=== PATIENT | female | born 1945 | race Caucasian/White ===

== ENCOUNTER 2019-12-05 11:00 | Outpatient (RCR) | payer MEDICARE, SELFPAY ==
[2019-11-21 08:25] VITALS: BP 94/70; PULSE 83; RESP 18; TEMP 36.8; O2SAT 97; BMI 23.2
--- NOTE | 2019-11-21 12:38 | PN.PCM_ITS ---
(1) Decubitus ulcer of left ankle, stage 2 Status: Acute Current Visit: Yes Code(s): L89.522 - Pressure ulcer of left ankle, stage 2 (2) Decubitus ulcer of left leg, stage 2 Status: Acute Current Visit: Yes Code(s): L89.892 - Pressure ulcer of other site, stage 2 (3) Atrial fibrillation and flutter Status: Acute Current Visit: Yes Code(s): I48.91 - Unspecified atrial fibrillation; I48.92 - Unspecified atrial flutter (4) Chronic obstructive pulmonary disease (COPD) Status: Chronic Current Visit: Yes Qualifiers: COPD type: COPD with acute exacerbation Qualified Code(s): J44.1 - Chronic obstructive pulmonary disease with (acute) exacerbation Code(s): J44.9 - Chronic obstructive pulmonary disease, unspecified Type of Wound Date of Service: 11/21/19 - Physical Exam Vital Signs Temp Pulse Resp BP Pulse Ox 98.3 F 83 18 94/70 97 11/21/19 08:25 11/21/19 08:25 11/21/19 08:25 11/21/19 08:25 11/21/19 08:25 Wound Measurements and Assessment WC - Nurse 1 - General Ulcer Measurement Start: 11/21/19 08:05 Freq: Status: Active Protocol: Activity Type Activity Date Activity User E-Sign Co-Sign Detail Recorded Client Recorded Date Recorded By Document 11/21/19 08:25 OR [id number] 11/21/19 08:57 MT 11/21/19 08:25 Wound Center Nurse 1 [Ulcer Assessment] #5 LEFT POSTERIOR -Current Size (cm) - Length 0.3 -Current Size (cm) - Width 0.3 -Current Size (cm) - Depth 0.1 -Total Square Cm 0.09 -Exudate Amt Small -Exudate Type Serosanguineous -Wound Margin Flat & Intact -Granulation Amt Small (1-33%) -Granulation Quality Pale,[place] -Necrosis Amt Large (67-100%) -Necrotic Tissue Type Adherent Slough -Texture (Darshana-wound Skin Appearance) Assessed, Localized Edema -Moisture (Darshana-wound Skin Appearance Assessed, ) Weeping -Color (Darshana-wound Skin Appearance) Assessed, Erythema -Temperature (Darshana-wound Skin Hot Appearance) -Tenderness on Palpation (Darshana-wound No Skin Appearance) -Ulcer Cleansing Rinsed/ Irrigated with Saline -Foul Odor after Cleansing No -Anesthetic Used 4% Lidocaine Solution #4 LEFT ACHILLES -Current Size (cm) - Length 2.8 -Current Size (cm) - Width 2.3 -Current Size (cm) - Depth 0.2 -Total Square Cm 6.44 -Exudate Amt None Present -Exudate Type Serosanguineous -Wound Margin Flat & Intact -Granulation Amt Small (1-33%) -Granulation Quality Pale,[place] -Necrosis Amt Large (67-100%) -Necrotic Tissue Type Adherent Slough -Texture (Darshana-wound Skin Appearance) Assessed, Localized Edema -Moisture (Darshana-wound Skin Appearance Assessed ) -Color (Darshana-wound Skin Appearance) Assessed -Temperature (Darshana-wound Skin Hot Appearance) -Tenderness on Palpation (Darshana-wound No Skin Appearance) -Ulcer Cleansing Rinsed/ Irrigated with Saline -Foul Odor after Cleansing No -Anesthetic Used 4% Lidocaine Solution #3 Left Anterior ankle cluster -Current Size (cm) - Length 2.2 -Current Size (cm) - Width 0.7 -Current Size (cm) - Depth 0.2 -Total Square Cm 1.54 -Exudate Amt Small -Exudate Type Serosanguineous -Wound Margin Flat & Intact -Granulation Amt Small (1-33%) -Granulation Quality Pale,[place] -Necrosis Amt Large (67-100%) -Necrotic Tissue Type Adherent Slough -Texture (Darshana-wound Skin Appearance) Assessed, Localized Edema -Moisture (Darshana-wound Skin Appearance Assessed, ) Weeping -Color (Darshana-wound Skin Appearance) Assessed, Erythema -Temperature (Darshana-wound Skin Hot Appearance) -Tenderness on Palpation (Darshana-wound No Skin Appearance) -Ulcer Cleansing Rinsed/ Irrigated with Saline -Foul Odor after Cleansing No -Anesthetic Used 4% Lidocaine Solution #2 Left Med Head -Current Size (cm) - Length 0.6 -Current Size (cm) - Width 0.5 -Current Size (cm) - Depth 0.1 -Total Square Cm 0.30 -Exudate Amt Small -Exudate Type Purulent -Wound Margin Flat & Intact -Granulation Amt Small (1-33%) -Granulation Quality Pale,[place] -Necrosis Amt Large (67-100%) -Necrotic Tissue Type Adherent Slough -Texture (Darshana-wound Skin Appearance) Assessed, Localized Edema -Moisture (Darshana-wound Skin Appearance Assessed, ) Weeping -Color (Darshana-wound Skin Appearance) Assessed, Erythema -Temperature (Darshana-wound Skin Hot Appearance) -Tenderness on Palpation (Darshana-wound No Skin Appearance) -Ulcer Cleansing Rinsed/ Irrigated with Saline -Foul Odor after Cleansing No -Anesthetic Used 4% Lidocaine Solution #1 right post calf -Current Size (cm) - Length 4.0 -Current Size (cm) - Width 1.2 -Current Size (cm) - Depth 0.2 -Total Square Cm 4.80 -Exudate Amt Small -Exudate Type Serosanguineous -Wound Margin Flat & Intact -Granulation Amt Small (1-33%) -Granulation Quality Pale,[place] -Necrosis Amt Large (67-100%) -Necrotic Tissue Type Adherent Slough -Texture (Darshana-wound Skin Appearance) Assessed, Localized Edema -Moisture (Darshana-wound Skin Appearance Assessed, ) Weeping -Color (Darshana-wound Skin Appearance) Assessed, Erythema -Temperature (Darshana-wound Skin No Abnormality Appearance) (Pt Warm) -Tenderness on Palpation (Darshana-wound No Skin Appearance) -Ulcer Cleansing Rinsed/ Irrigated with Saline -Foul Odor after Cleansing No -Anesthetic Used 4% Lidocaine Solution [Edema Assessment] -Right Calf (cm) 35 -Right Ankle (cm) 23 -Left Calf (cm) 35.5 -Left Ankle (cm) 22 WC - Nurse 2 - General Ulcer CM Notes Start: 11/21/19 08:05 Freq: Status: Active Protocol: Activity Type Activity Date Activity User E-Sign Co-Sign Detail Recorded Client Recorded Date Recorded By Document 11/21/19 09:19 MW [id number] 11/21/19 09:31 MW 11/21/19 09:19 Wound Center Nurse 2 [Procedure/Treatment] #5 LEFT POSTERIOR -Time 09:21 -Correct Patient Yes -Correct Side, Site, Position Yes -Correct Procedure Yes -Procedure Performed No -Post Debridement Size (cm) - Length 0 -Post Debridement Size (cm) - Width 0 -Post Debridement Size (cm) - Depth 0 -Total Square Cm 0 -Wound/Ulcer Outcome Healed- Epithelialized -Bleeding Controlled with NA #4 LEFT ACHILLES -Time 09:21 -Correct Patient Yes -Correct Side, Site, Position Yes -Correct Procedure Yes -Procedure Performed Yes -Type of Procedure Debridement -Clinical Debridement Subcutaneous -Post Debridement Size (cm) - Length 3.5 -Post Debridement Size (cm) - Width 3.5 -Post Debridement Size (cm) - Depth 0.2 -Total Square Cm 12.25 -Wound/Ulcer Outcome Not Healed -Ulcer Cleansing Rinsed/ Irrigated with Saline -Foul Odor after Cleansing No -Bioengineered Tissue No -Bleeding Controlled with Pressure -Offloading No -Treatment Response Procedure Tolerated Well #3 Left Anterior ankle cluster -Time 09:21 -Correct Patient Yes -Correct Side, Site, Position Yes -Correct Procedure Yes -Procedure Performed Yes -Type of Procedure Debridement -Clinical Debridement Subcutaneous -Post Debridement Size (cm) - Length 9.0 -Post Debridement Size (cm) - Width 1.0 -Post Debridement Size (cm) - Depth 0.2 -Total Square Cm 9.00 -Wound/Ulcer Outcome Not Healed -Ulcer Cleansing Rinsed/ Irrigated with Saline -Foul Odor after Cleansing No -Bioengineered Tissue No -Bleeding Controlled with Pressure -Offloading No -Treatment Response Procedure Tolerated Well #2 Left Med Head -Time 09:22 -Correct Patient Yes -Correct Side, Site, Position Yes -Correct Procedure Yes -Procedure Performed No -Wound/Ulcer Outcome Healed- Epithelialized -Ulcer Cleansing Not Cleansed -Bleeding Controlled with NA #1 right post calf -Time 09:22 -Correct Patient Yes -Correct Side, Site, Position Yes -Correct Procedure Yes -Procedure Performed Yes -Type of Procedure Debridement -Clinical Debridement Subcutaneous -Post Debridement Size (cm) - Length 4.3 -Post Debridement Size (cm) - Width 1.5 -Post Debridement Size (cm) - Depth 0.3 -Total Square Cm 6.45 -Wound/Ulcer Outcome Not Healed -Ulcer Cleansing Rinsed/ Irrigated with Saline -Foul Odor after Cleansing No -Bioengineered Tissue No -Bleeding Controlled with Pressure -Offloading No -Treatment Response Procedure Tolerated Well [See Physician Procedure note for Specifics] Pain Scale: 0-10 Numeric [Pain] -Is Patient Pain Free? Yes Debridement Note Post-Debridement Measurements/Treatment WC - Nurse 2 - General Ulcer CM Notes Start: 11/21/19 08:05 Freq: Status: Active Protocol: Activity Type Activity Date Activity User E-Sign Co-Sign Detail Recorded Client Recorded Date Recorded By Document 11/21/19 09:19 MW [id number] 11/21/19 09:31 MW 11/21/19 09:19 Wound Center Nurse 2 #5 LEFT POSTERIOR -Time 09:21 -Correct Patient Yes -Correct Side, Site, Position Yes -Correct Procedure Yes -Procedure Performed No -Post Debridement Size (cm) - Length 0 -Post Debridement Size (cm) - Width 0 -Post Debridement Size (cm) - Depth 0 -Total Square Cm 0 -Wound/Ulcer Outcome Healed- Epithelialized -Bleeding Controlled with NA #4 LEFT ACHILLES -Time 09:21 -Correct Patient Yes -Correct Side, Site, Position Yes -Correct Procedure Yes -Procedure Performed Yes -Type of Procedure Debridement -Clinical Debridement Subcutaneous -Post Debridement Size (cm) - Length 3.5 -Post Debridement Size (cm) - Width 3.5 -Post Debridement Size (cm) - Depth 0.2 -Total Square Cm 12.25 -Wound/Ulcer Outcome Not Healed -Ulcer Cleansing Rinsed/ Irrigated with Saline -Foul Odor after Cleansing No -Bioengineered Tissue No -Bleeding Controlled with Pressure -Offloading No -Treatment Response Procedure Tolerated Well #3 Left Anterior ankle cluster -Time 09:21 -Correct Patient Yes -Correct Side, Site, Position Yes -Correct Procedure Yes -Procedure Performed Yes -Type of Procedure Debridement -Clinical Debridement Subcutaneous -Post Debridement Size (cm) - Length 9.0 -Post Debridement Size (cm) - Width 1.0 -Post Debridement Size (cm) - Depth 0.2 -Total Square Cm 9.00 -Wound/Ulcer Outcome Not Healed -Ulcer Cleansing Rinsed/ Irrigated with Saline -Foul Odor after Cleansing No -Bioengineered Tissue No -Bleeding Controlled with Pressure -Offloading No -Treatment Response Procedure Tolerated Well #2 Left Med Head -Time 09:22 -Correct Patient Yes -Correct Side, Site, Position Yes -Correct Procedure Yes -Procedure Performed No -Wound/Ulcer Outcome Healed- Epithelialized -Ulcer Cleansing Not Cleansed -Bleeding Controlled with NA #1 right post calf -Time 09:22 -Correct Patient Yes -Correct Side, Site, Position Yes -Correct Procedure Yes -Procedure Performed Yes -Type of Procedure Debridement -Clinical Debridement Subcutaneous -Post Debridement Size (cm) - Length 4.3 -Post Debridement Size (cm) - Width 1.5 -Post Debridement Size (cm) - Depth 0.3 -Total Square Cm 6.45 -Wound/Ulcer Outcome Not Healed -Ulcer Cleansing Rinsed/ Irrigated with Saline -Foul Odor after Cleansing No -Bioengineered Tissue No -Bleeding Controlled with Pressure -Offloading No -Treatment Response Procedure Tolerated Well Pain Scale: 0-10 Numeric Is Patient Pain Free? Yes Assessment/Plan Active Problems Decubitus ulcer of left ankle, stage 2 (Acute) Decubitus ulcer of left leg, stage 2 (Acute) Atrial fibrillation and flutter (Acute) Chronic obstructive pulmonary disease (COPD) (Chronic)
--- NOTE | 2019-11-21 12:46 | PCM.WC.HP ---
(1) Decubitus ulcer of left ankle, stage 2 Status: Acute Current Visit: Yes Code(s): L89.522 - Pressure ulcer of left ankle, stage 2 (2) Decubitus ulcer of left leg, stage 2 Status: Acute Current Visit: Yes Code(s): L89.892 - Pressure ulcer of other site, stage 2 (3) Atrial fibrillation and flutter Status: Acute Current Visit: Yes Code(s): I48.91 - Unspecified atrial fibrillation; I48.92 - Unspecified atrial flutter (4) Chronic obstructive pulmonary disease (COPD) Status: Chronic Current Visit: Yes Qualifiers: COPD type: COPD with acute exacerbation Qualified Code(s): J44.1 - Chronic obstructive pulmonary disease with (acute) exacerbation Code(s): J44.9 - Chronic obstructive pulmonary disease, unspecified History of Present Illness Date of Service: 11/21/19 Chief Complaint: Follow-up on decubitus ulcers right and left lower extremities History of Wound: 74-year-old white female referred to us by her family doctor for wound care on her decubitus ulcers that have developed on bilateral lower extremities. Patient has many comorbidities and is not ambulatory. Daughter is here with her today and states she has a hospital bed and is either in the bed or in the lounge chair. Patient has pitting edema bilateral lower extremities. Patient is on Bumex daily but only uses the Lasix when her weight gain is greater than 3 pounds. Patient is seeping fluid out of skin pores and wounds. This is causing more wounds and cellulitis. Patient was on antibiotics for her cellulitis from her family doctor of [place] and has finished that. Patient also had MRSA history and that is why she was on Levaquin also. Past Medical History Past Medical History: Chronic Problems Chronic obstructive pulmonary disease (COPD) (Chronic) Past Medical History: MRSA and infected wounds, edema lower extremities, congestive heart failure, atrial fib, pitting edema bilateral lower extremities, cubitus ulcers bilateral lower extremities, Home Medications: Ambulatory Orders Medication Instructions Recorded Atenolol 25 mg PO DAILY 11/21/19 Bumetanide 1 mg PO BID 11/21/19 Digoxin 0.125 mg PO DAILY 11/21/19 Folic Acid 1 mg PO DAILY@0800 11/21/19 Gabapentin [Neurontin] 600 mg PO BIDCM 11/21/19 Magnesium 200 mg PO DAILY 11/21/19 Methotrexate 2.5 mg pe BC DAILY 11/21/19 Potassium Chloride [K-Dur] 20 meq PO DAILY 11/21/19 Prednisone 5 mg PO BID 11/21/19 traMADol [Ultram (G)] 50 mg PO Q4H PRN PRN 11/21/19 Review of Systems Constitutional: Denies: Chills, Fever Eyes: Denies: Blurred vision, Drainage, Pain HEENT: Denies: Difficulty Hearing, Difficulty Swallowing, Sore Throat, Visual Changes Cardiovascular: Denies: Chest Pain, Palpitations, Syncope Respiratory: Denies: Cough, Shortness of Breath Gastrointestinal: Denies: Abdominal Pain, Nausea, Vomiting Genitourinary: Denies: Dysuria, Frequency Musculoskeletal: Denies: Joint Pain, Muscle pain Skin: Reports: Wounds - Decubitus ulcers bilateral lower extremities. Denies: Jaundice, Rash Neurological: Denies: Balance problems, Change in Speech, Difficulty swallowing, Focal weakness Psychiatric: Denies: Anxiety, Depression Endocrine: Denies: Change in Body Habitus Hematologic/ Lymphatic: Denies: Adenopathy - Physical Exam Vital Signs Temp Pulse Resp BP Pulse Ox 98.3 F 83 18 94/70 97 11/21/19 08:25 11/21/19 08:25 11/21/19 08:25 11/21/19 08:25 11/21/19 08:25 General: Oriented x3, Cooperative, Well developed HEENT: Atraumatic, PERRLA Oral: Moist Mucosa Neck: Supple, No JVD Lungs: Normal air movement, No rhonchi Cardiovascular: Regular rate, Regular Rhythm Abdomen: Bowel Sounds Present, Soft, Non Tender, No Hepato-splenomegaly Extremities: No clubbing, No edema Skin: Ulcer/ Wound - Decubitus ulcers bilateral lower extremities anterior and posterior Edema bilateral lower legs Wound Measurements and Assessment WC - Nurse 1 - General Ulcer Measurement Start: 11/21/19 08:05 Freq: Status: Active Protocol: Activity Type Activity Date Activity User E-Sign Co-Sign Detail Recorded Client Recorded Date Recorded By Document 11/21/19 08:25 WI [id number] 11/21/19 08:57 MT 11/21/19 08:25 Wound Center Nurse 1 [Ulcer Assessment] #5 LEFT POSTERIOR -Current Size (cm) - Length 0.3 -Current Size (cm) - Width 0.3 -Current Size (cm) - Depth 0.1 -Total Square Cm 0.09 -Exudate Amt Small -Exudate Type Serosanguineous -Wound Margin Flat & Intact -Granulation Amt Small (1-33%) -Granulation Quality Pale,[place] -Necrosis Amt Large (67-100%) -Necrotic Tissue Type Adherent Slough -Texture (Darshana-wound Skin Appearance) Assessed, Localized Edema -Moisture (Darshana-wound Skin Appearance Assessed, ) Weeping -Color (Darshana-wound Skin Appearance) Assessed, Erythema -Temperature (Darshana-wound Skin Hot Appearance) -Tenderness on Palpation (Darshana-wound No Skin Appearance) -Ulcer Cleansing Rinsed/ Irrigated with Saline -Foul Odor after Cleansing No -Anesthetic Used 4% Lidocaine Solution #4 LEFT ACHILLES -Current Size (cm) - Length 2.8 -Current Size (cm) - Width 2.3 -Current Size (cm) - Depth 0.2 -Total Square Cm 6.44 -Exudate Amt None Present -Exudate Type Serosanguineous -Wound Margin Flat & Intact -Granulation Amt Small (1-33%) -Granulation Quality Pale,[place] -Necrosis Amt Large (67-100%) -Necrotic Tissue Type Adherent Slough -Texture (Darshana-wound Skin Appearance) Assessed, Localized Edema -Moisture (Darshana-wound Skin Appearance Assessed ) -Color (Darshana-wound Skin Appearance) Assessed -Temperature (Darshana-wound Skin Hot Appearance) -Tenderness on Palpation (Darshana-wound No Skin Appearance) -Ulcer Cleansing Rinsed/ Irrigated with Saline -Foul Odor after Cleansing No -Anesthetic Used 4% Lidocaine Solution #3 Left Anterior ankle cluster -Current Size (cm) - Length 2.2 -Current Size (cm) - Width 0.7 -Current Size (cm) - Depth 0.2 -Total Square Cm 1.54 -Exudate Amt Small -Exudate Type Serosanguineous -Wound Margin Flat & Intact -Granulation Amt Small (1-33%) -Granulation Quality Pale,[place] -Necrosis Amt Large (67-100%) -Necrotic Tissue Type Adherent Slough -Texture (Darshana-wound Skin Appearance) Assessed, Localized Edema -Moisture (Darshana-wound Skin Appearance Assessed, ) Weeping -Color (Darshana-wound Skin Appearance) Assessed, Erythema -Temperature (Darshana-wound Skin Hot Appearance) -Tenderness on Palpation (Darshana-wound No Skin Appearance) -Ulcer Cleansing Rinsed/ Irrigated with Saline -Foul Odor after Cleansing No -Anesthetic Used 4% Lidocaine Solution #2 Left Med Head -Current Size (cm) - Length 0.6 -Current Size (cm) - Width 0.5 -Current Size (cm) - Depth 0.1 -Total Square Cm 0.30 -Exudate Amt Small -Exudate Type Purulent -Wound Margin Flat & Intact -Granulation Amt Small (1-33%) -Granulation Quality Pale,[place] -Necrosis Amt Large (67-100%) -Necrotic Tissue Type Adherent Slough -Texture (Darshana-wound Skin Appearance) Assessed, Localized Edema -Moisture (Darshana-wound Skin Appearance Assessed, ) Weeping -Color (Darshana-wound Skin Appearance) Assessed, Erythema -Temperature (Darshana-wound Skin Hot Appearance) -Tenderness on Palpation (Darshana-wound No Skin Appearance) -Ulcer Cleansing Rinsed/ Irrigated with Saline -Foul Odor after Cleansing No -Anesthetic Used 4% Lidocaine Solution #1 right post calf -Current Size (cm) - Length 4.0 -Current Size (cm) - Width 1.2 -Current Size (cm) - Depth 0.2 -Total Square Cm 4.80 -Exudate Amt Small -Exudate Type Serosanguineous -Wound Margin Flat & Intact -Granulation Amt Small (1-33%) -Granulation Quality Pale,[place] -Necrosis Amt Large (67-100%) -Necrotic Tissue Type Adherent Slough -Texture (Darshana-wound Skin Appearance) Assessed, Localized Edema -Moisture (Darshana-wound Skin Appearance Assessed, ) Weeping -Color (Darshana-wound Skin Appearance) Assessed, Erythema -Temperature (Darshana-wound Skin No Abnormality Appearance) (Pt Warm) -Tenderness on Palpation (Darshana-wound No Skin Appearance) -Ulcer Cleansing Rinsed/ Irrigated with Saline -Foul Odor after Cleansing No -Anesthetic Used 4% Lidocaine Solution [Edema Assessment] -Right Calf (cm) 35 -Right Ankle (cm) 23 -Left Calf (cm) 35.5 -Left Ankle (cm) 22 WC - Nurse 2 - General Ulcer CM Notes Start: 11/21/19 08:05 Freq: Status: Active Protocol: Activity Type Activity Date Activity User E-Sign Co-Sign Detail Recorded Client Recorded Date Recorded By Document 11/21/19 09:19 MW [id number] 11/21/19 09:31 MW 11/21/19 09:19 Wound Center Nurse 2 [Procedure/Treatment] #5 LEFT POSTERIOR -Time 09:21 -Correct Patient Yes -Correct Side, Site, Position Yes -Correct Procedure Yes -Procedure Performed No -Post Debridement Size (cm) - Length 0 -Post Debridement Size (cm) - Width 0 -Post Debridement Size (cm) - Depth 0 -Total Square Cm 0 -Wound/Ulcer Outcome Healed- Epithelialized -Bleeding Controlled with NA #4 LEFT ACHILLES -Time 09:21 -Correct Patient Yes -Correct Side, Site, Position Yes -Correct Procedure Yes -Procedure Performed Yes -Type of Procedure Debridement -Clinical Debridement Subcutaneous -Post Debridement Size (cm) - Length 3.5 -Post Debridement Size (cm) - Width 3.5 -Post Debridement Size (cm) - Depth 0.2 -Total Square Cm 12.25 -Wound/Ulcer Outcome Not Healed -Ulcer Cleansing Rinsed/ Irrigated with Saline -Foul Odor after Cleansing No -Bioengineered Tissue No -Bleeding Controlled with Pressure -Offloading No -Treatment Response Procedure Tolerated Well #3 Left Anterior ankle cluster -Time 09:21 -Correct Patient Yes -Correct Side, Site, Position Yes -Correct Procedure Yes -Procedure Performed Yes -Type of Procedure Debridement -Clinical Debridement Subcutaneous -Post Debridement Size (cm) - Length 9.0 -Post Debridement Size (cm) - Width 1.0 -Post Debridement Size (cm) - Depth 0.2 -Total Square Cm 9.00 -Wound/Ulcer Outcome Not Healed -Ulcer Cleansing Rinsed/ Irrigated with Saline -Foul Odor after Cleansing No -Bioengineered Tissue No -Bleeding Controlled with Pressure -Offloading No -Treatment Response Procedure Tolerated Well #2 Left Med Head -Time 09:22 -Correct Patient Yes -Correct Side, Site, Position Yes -Correct Procedure Yes -Procedure Performed No -Wound/Ulcer Outcome Healed- Epithelialized -Ulcer Cleansing Not Cleansed -Bleeding Controlled with NA #1 right post calf -Time 09:22 -Correct Patient Yes -Correct Side, Site, Position Yes -Correct Procedure Yes -Procedure Performed Yes -Type of Procedure Debridement -Clinical Debridement Subcutaneous -Post Debridement Size (cm) - Length 4.3 -Post Debridement Size (cm) - Width 1.5 -Post Debridement Size (cm) - Depth 0.3 -Total Square Cm 6.45 -Wound/Ulcer Outcome Not Healed -Ulcer Cleansing Rinsed/ Irrigated with Saline -Foul Odor after Cleansing No -Bioengineered Tissue No -Bleeding Controlled with Pressure -Offloading No -Treatment Response Procedure Tolerated Well [See Physician Procedure note for Specifics] Pain Scale: 0-10 Numeric [Pain] -Is Patient Pain Free? Yes Musculoskeletal: No Tenderness to Palpation of Joints or Extremities Lymphatic: No Cervical, Supraclavicular, or Inguinal Adenopathy Neurological: Cranial nerves II-XII grossly intact, Neuro grossly intact Psych/Mental Status: Normal Affect, Appropriate, Alert and oriented to time, place, person, mood and affect Debridement Note Post-Debridement Measurements/Treatment WC - Nurse 2 - General Ulcer CM Notes Start: 11/21/19 08:05 Freq: Status: Active Protocol: Activity Type Activity Date Activity User E-Sign Co-Sign Detail Recorded Client Recorded Date Recorded By Document 11/21/19 09:19 MW [id number] 11/21/19 09:31 MW 11/21/19 09:19 Wound Center Nurse 2 #5 LEFT POSTERIOR -Time 09:21 -Correct Patient Yes -Correct Side, Site, Position Yes -Correct Procedure Yes -Procedure Performed No -Post Debridement Size (cm) - Length 0 -Post Debridement Size (cm) - Width 0 -Post Debridement Size (cm) - Depth 0 -Total Square Cm 0 -Wound/Ulcer Outcome Healed- Epithelialized -Bleeding Controlled with NA #4 LEFT ACHILLES -Time 09:21 -Correct Patient Yes -Correct Side, Site, Position Yes -Correct Procedure Yes -Procedure Performed Yes -Type of Procedure Debridement -Clinical Debridement Subcutaneous -Post Debridement Size (cm) - Length 3.5 -Post Debridement Size (cm) - Width 3.5 -Post Debridement Size (cm) - Depth 0.2 -Total Square Cm 12.25 -Wound/Ulcer Outcome Not Healed -Ulcer Cleansing Rinsed/ Irrigated with Saline -Foul Odor after Cleansing No -Bioengineered Tissue No -Bleeding Controlled with Pressure -Offloading No -Treatment Response Procedure Tolerated Well #3 Left Anterior ankle cluster -Time 09:21 -Correct Patient Yes -Correct Side, Site, Position Yes -Correct Procedure Yes -Procedure Performed Yes -Type of Procedure Debridement -Clinical Debridement Subcutaneous -Post Debridement Size (cm) - Length 9.0 -Post Debridement Size (cm) - Width 1.0 -Post Debridement Size (cm) - Depth 0.2 -Total Square Cm 9.00 -Wound/Ulcer Outcome Not Healed -Ulcer Cleansing Rinsed/ Irrigated with Saline -Foul Odor after Cleansing No -Bioengineered Tissue No -Bleeding Controlled with Pressure -Offloading No -Treatment Response Procedure Tolerated Well #2 Left Med Head -Time 09:22 -Correct Patient Yes -Correct Side, Site, Position Yes -Correct Procedure Yes -Procedure Performed No -Wound/Ulcer Outcome Healed- Epithelialized -Ulcer Cleansing Not Cleansed -Bleeding Controlled with NA #1 right post calf -Time 09:22 -Correct Patient Yes -Correct Side, Site, Position Yes -Correct Procedure Yes -Procedure Performed Yes -Type of Procedure Debridement -Clinical Debridement Subcutaneous -Post Debridement Size (cm) - Length 4.3 -Post Debridement Size (cm) - Width 1.5 -Post Debridement Size (cm) - Depth 0.3 -Total Square Cm 6.45 -Wound/Ulcer Outcome Not Healed -Ulcer Cleansing Rinsed/ Irrigated with Saline -Foul Odor after Cleansing No -Bioengineered Tissue No -Bleeding Controlled with Pressure -Offloading No -Treatment Response Procedure Tolerated Well Pain Scale: 0-10 Numeric Is Patient Pain Free? Yes Wound debrided: Right posterior calf decubitus ulcer Wound Grade/Stage: Stage II Type of Debridement: Excisional debridement Anesthesia Used: 5% Lidocaine Gel Depth: Down to and including healthy tissue, in the subcutaneous layer Percentage of wound debrided: 100 Instrument Used: 7mm curette, #15 blade, Forceps Tissue Removed: Slough devitalized tissue Severity: Limited To Skin Breakdown Amount of bleeding with debridement: None Bleeding Controlled with: Compression and gauze Patient tolerated procedure well - Additional Wound Wound debrided: Anterior ankle cluster Laterality: Left Wound Grade/Stage: Stage II Type of Debridement: Excisional debridement Anesthesia Used: 5% Lidocaine Gel Depth: Down to and including healthy tissue, in the subcutaneous layer Percentage of wound debrided: 100 Instrument Used: 7mm curette, #15 blade, Forceps Tissue Removed: Slough and scoring Severity: Limited To Skin Breakdown Amount of bleeding with debridement: Mild Bleeding Controlled with: Compression and gauze Patient tolerated procedure: Patient tolerated procedure well - Additional Wound Wound debrided: Left posterior ankle Laterality: Left Wound Grade/Stage: stage 2 Type of Debridement: Excisional debridement Anesthesia Used: 5% Lidocaine Gel Depth: Down to and including healthy tissue, in the subcutaneous layer Percentage of wound debrided: 100 Instrument Used: 5mm curette Tissue Removed: Slough and some fibrin Severity: Limited To Skin Breakdown Amount of bleeding with debridement: Mild Bleeding Controlled with: Compression and gauze Patient tolerated procedure: Patient tolerated procedure well Assessment/Plan Active Problems Decubitus ulcer of left ankle, stage 2 (Acute) Decubitus ulcer of left leg, stage 2 (Acute) Atrial fibrillation and flutter (Acute) Chronic obstructive pulmonary disease (COPD) (Chronic) Assessment: Decubitus ulcers bilateral lower extremities. Bilateral lower leg edema pitting. Congestive heart failure. Atrial fib. Malnutrition Plan: Wash legs with antibacterial soap from knees to toes. Apply Silvadene cream nickel thickness to all open areas cover with gauze Roland double layer Tubigrip's or she may use her own compression stockings with Vu wraps over top. Patient needs to be adjusted on her edema with increase in Lasix daily.
[2019-11-28 10:32] VITALS: BP 104/68; PULSE 74; RESP 22; TEMP 36.8; BMI 23.2
--- NOTE | 2019-11-28 11:19 | PCM.WC.PN ---
(1) Decubitus ulcer of left ankle, stage 2 Status: Acute Current Visit: Yes Code(s): L89.522 - Pressure ulcer of left ankle, stage 2 (2) Decubitus ulcer of left leg, stage 2 Status: Acute Current Visit: Yes Code(s): L89.892 - Pressure ulcer of other site, stage 2 (3) Atrial fibrillation and flutter Status: Acute Current Visit: Yes Code(s): I48.91 - Unspecified atrial fibrillation; I48.92 - Unspecified atrial flutter (4) Chronic obstructive pulmonary disease (COPD) Status: Chronic Current Visit: Yes Qualifiers: COPD type: COPD with acute exacerbation Qualified Code(s): J44.1 - Chronic obstructive pulmonary disease with (acute) exacerbation Code(s): J44.9 - Chronic obstructive pulmonary disease, unspecified (5) Decubitus ulcer of right leg, stage 2 Status: Acute Current Visit: Yes Code(s): L89.892 - Pressure ulcer of other site, stage 2 (6) Edema, lower extremity Status: Acute Current Visit: Yes Code(s): R60.0 - Localized edema Type of Wound Date of Service: 11/28/19 Chief Complaint: Follow-up on decubitus ulcers right and left lower extremities History of Wound: 74-year-old white female referred to us by her family doctor for wound care on her decubitus ulcers that have developed on bilateral lower extremities. Patient has many comorbidities and is not ambulatory. Daughter is here with her today and states she has a hospital bed and is either in the bed or in the lounge chair. Patient has pitting edema bilateral lower extremities. Patient is on Bumex daily but only uses the Lasix when her weight gain is greater than 3 pounds. Patient is seeping fluid out of skin pores and wounds. This is causing more wounds and cellulitis. Patient was on antibiotics for her cellulitis from her family doctor of [place] and has finished that. Patient also had MRSA history and that is why she was on Levaquin also. Progress of Wound: Right posterior calf left anterior ankle cluster and left Achilles ulcers are all improving with the Silvadene cream. Edema is slightly better still has some pitting daughter is noticing more swelling up in the upper thighs. Tolerating increased Lasix per will get lab work today CMP magnesium prealbumin CBC with differential. Cultures came back positive for staph and Corynebacterium started patient on linezolid 600 twice a day for 10 days - Physical Exam Vital Signs Temp Pulse Resp BP Pulse Ox 98.2 F 74 22 H 104/68 97 11/28/19 10:32 11/28/19 10:32 11/28/19 10:32 11/28/19 10:32 11/21/19 08:25 General: Oriented x3, Cooperative, Well developed HEENT: Atraumatic, PERRLA Oral: Moist Mucosa Neck: Supple, No JVD Lungs: Clear to auscultation, Normal air movement Cardiovascular: Regular rate, Regular Rhythm Abdomen: Bowel Sounds Present, Soft, Non Tender, No Hepato-splenomegaly Extremities: No clubbing, No edema, - - Pressure ulcers left anterior ankle and left Achilles right posterior calf stage II's Wound Measurements and Assessment WC - Nurse 1 - General Ulcer Measurement Start: 11/21/19 08:05 Freq: Status: Active Protocol: Activity Type Activity Date Activity User E-Sign Co-Sign Detail Recorded Client Recorded Date Recorded By Document 11/28/19 10:32 DL [id number] 11/28/19 10:49 DL 11/28/19 10:32 Wound Center Nurse 1 [Ulcer Assessment] #4 LEFT ACHILLES -Current Size (cm) - Length 3 -Current Size (cm) - Width 2.8 -Current Size (cm) - Depth 0.2 -Total Square Cm 8.4 -Photo Taken No -Exudate Amt Small -Exudate Type Serosanguineous -Wound Margin Distinct, Outline Attached -Granulation Amt None Present (0 %) -Necrosis Amt Large (67-100%) -Necrotic Tissue Type Adherent Slough -Structure Exposed N/A -Texture (Darshana-wound Skin Appearance) Localized Edema -Moisture (Darshana-wound Skin Appearance Dry/Scaly ) -Color (Darshana-wound Skin Appearance) Erythema,Rubor -Temperature (Darshana-wound Skin No Abnormality Appearance) (Pt Warm) -Tenderness on Palpation (Darshana-wound Yes Skin Appearance) -Ulcer Cleansing Wound Cleanser -Foul Odor after Cleansing No -Anesthetic Used 4% Lidocaine Solution #3 Left Anterior ankle cluster -Current Size (cm) - Length 2.8 -Current Size (cm) - Width 1.1 -Current Size (cm) - Depth 0.1 -Total Square Cm 3.08 -Photo Taken No -Exudate Amt Small -Exudate Type Serosanguineous -Wound Margin Distinct, Outline Attached -Granulation Amt Medium (34-66%) -Granulation Quality [place] -Necrosis Amt Medium (34-66%) -Necrotic Tissue Type Adherent Slough -Structure Exposed N/A -Texture (Darshana-wound Skin Appearance) Scarring -Moisture (Darshana-wound Skin Appearance Dry/Scaly ) -Color (Darshana-wound Skin Appearance) Erythema,Rubor -Temperature (Darshana-wound Skin No Abnormality Appearance) (Pt Warm) -Tenderness on Palpation (Darshana-wound Yes Skin Appearance) -Ulcer Cleansing Wound Cleanser -Foul Odor after Cleansing No -Anesthetic Used 4% Lidocaine Solution #1 right post calf -Current Size (cm) - Length 3.9 -Current Size (cm) - Width 1.4 -Current Size (cm) - Depth 0.2 -Total Square Cm 5.46 -Photo Taken No -Exudate Amt Small -Exudate Type Serosanguineous -Wound Margin Distinct, Outline Attached -Granulation Amt Large (67-100%) -Granulation Quality Pale,[place] -Necrosis Amt Small (1-33%) -Necrotic Tissue Type Adherent Slough -Structure Exposed N/A -Texture (Darshana-wound Skin Appearance) Localized Edema ,Scarring -Moisture (Darshana-wound Skin Appearance No Abnormality ) -Color (Darshana-wound Skin Appearance) Erythema,Rubor -Temperature (Darshana-wound Skin No Abnormality Appearance) (Pt Warm) -Tenderness on Palpation (Darshana-wound No Skin Appearance) -Ulcer Cleansing Wound Cleanser -Foul Odor after Cleansing No -Anesthetic Used 4% Lidocaine Solution [Edema Assessment] -Right Calf (cm) 38.5 -Right Ankle (cm) 23.3 -Left Calf (cm) 37 -Left Ankle (cm) 24.2 WC - Nurse 2 - General Ulcer CM Notes Start: 11/21/19 08:05 Freq: Status: Active Protocol: Activity Type Activity Date Activity User E-Sign Co-Sign Detail Recorded Client Recorded Date Recorded By Document 11/28/19 11:03 MW [id number] 11/28/19 11:07 MW 11/28/19 11:03 Wound Center Nurse 2 [Procedure/Treatment] #4 LEFT ACHILLES -Time 11:03 -Correct Patient Yes -Correct Side, Site, Position Yes -Correct Procedure Yes -Procedure Performed Yes -Type of Procedure Debridement -Clinical Debridement Subcutaneous -Post Debridement Size (cm) - Length 3.0 -Post Debridement Size (cm) - Width 3.0 -Post Debridement Size (cm) - Depth 0.2 -Total Square Cm 9.00 -Wound/Ulcer Outcome Not Healed -Ulcer Cleansing Rinsed/ Irrigated with Saline -Foul Odor after Cleansing No -Bioengineered Tissue No -Bleeding Controlled with Pressure -Offloading No -Treatment Response Procedure Tolerated Well #3 Left Anterior ankle cluster -Time 11:04 -Correct Patient Yes -Correct Side, Site, Position Yes -Correct Procedure Yes -Procedure Performed Yes -Type of Procedure Debridement -Clinical Debridement Subcutaneous -Post Debridement Size (cm) - Length 8.3 -Post Debridement Size (cm) - Width 1.5 -Post Debridement Size (cm) - Depth 0.2 -Total Square Cm 12.45 -Wound/Ulcer Outcome Not Healed -Ulcer Cleansing Rinsed/ Irrigated with Saline -Foul Odor after Cleansing No -Bioengineered Tissue No -Bleeding Controlled with Pressure -Offloading No -Treatment Response Procedure Tolerated Well #1 right post calf -Time 11:04 -Correct Patient Yes -Correct Side, Site, Position Yes -Correct Procedure Yes -Procedure Performed Yes -Type of Procedure Debridement -Clinical Debridement Subcutaneous -Post Debridement Size (cm) - Length 4.0 -Post Debridement Size (cm) - Width 1.5 -Post Debridement Size (cm) - Depth 0.2 -Total Square Cm 6.00 -Wound/Ulcer Outcome Not Healed -Ulcer Cleansing Rinsed/ Irrigated with Saline -Foul Odor after Cleansing No -Bioengineered Tissue No -Bleeding Controlled with Pressure -Offloading No -Treatment Response Procedure Tolerated Well [See Physician Procedure note for Specifics] Pain Scale: 0-10 Numeric [Pain] -Is Patient Pain Free? Yes Musculoskeletal: No Tenderness to Palpation of Joints or Extremities Lymphatic: No Cervical, Supraclavicular, or Inguinal Adenopathy Neurological: Cranial nerves II-XII grossly intact, Neuro grossly intact Psych/Mental Status: Normal Affect, Appropriate Debridement Note Post-Debridement Measurements/Treatment WC - Nurse 2 - General Ulcer CM Notes Start: 11/21/19 08:05 Freq: Status: Active Protocol: Activity Type Activity Date Activity User E-Sign Co-Sign Detail Recorded Client Recorded Date Recorded By Document 11/21/19 09:19 MW [id number] 11/21/19 09:31 MW Document 11/28/19 11:03 MW [id number] 11/28/19 11:07 MW 11/21/19 11/28/19 09:19 11:03 Wound Center Nurse 2 #5 LEFT POSTERIOR -Time 09:21 -Correct Patient Yes -Correct Side, Site, Position Yes -Correct Procedure Yes -Procedure Performed No -Post Debridement Size (cm) - Length 0 -Post Debridement Size (cm) - Width 0 -Post Debridement Size (cm) - Depth 0 -Total Square Cm 0 -Wound/Ulcer Outcome Healed- Epithelialized -Bleeding Controlled with NA #4 LEFT ACHILLES -Time 09:21 11:03 -Correct Patient Yes Yes -Correct Side, Site, Position Yes Yes -Correct Procedure Yes Yes -Procedure Performed Yes Yes -Type of Procedure Debridement Debridement -Clinical Debridement Subcutaneous Subcutaneous -Post Debridement Size (cm) - Length 3.5 3.0 -Post Debridement Size (cm) - Width 3.5 3.0 -Post Debridement Size (cm) - Depth 0.2 0.2 -Total Square Cm 12.25 9.00 -Wound/Ulcer Outcome Not Healed Not Healed -Ulcer Cleansing Rinsed/ Rinsed/ Irrigated with Irrigated with Saline Saline -Foul Odor after Cleansing No No -Bioengineered Tissue No No -Bleeding Controlled with Pressure Pressure -Offloading No No -Treatment Response Procedure Procedure Tolerated Well Tolerated Well #3 Left Anterior ankle cluster -Time 09:21 11:04 -Correct Patient Yes Yes -Correct Side, Site, Position Yes Yes -Correct Procedure Yes Yes -Procedure Performed Yes Yes -Type of Procedure Debridement Debridement -Clinical Debridement Subcutaneous Subcutaneous -Post Debridement Size (cm) - Length 9.0 8.3 -Post Debridement Size (cm) - Width 1.0 1.5 -Post Debridement Size (cm) - Depth 0.2 0.2 -Total Square Cm 9.00 12.45 -Wound/Ulcer Outcome Not Healed Not Healed -Ulcer Cleansing Rinsed/ Rinsed/ Irrigated with Irrigated with Saline Saline -Foul Odor after Cleansing No No -Bioengineered Tissue No No -Bleeding Controlled with Pressure Pressure -Offloading No No -Treatment Response Procedure Procedure Tolerated Well Tolerated Well #2 Left Med Head -Time 09:22 -Correct Patient Yes -Correct Side, Site, Position Yes -Correct Procedure Yes -Procedure Performed No -Wound/Ulcer Outcome Healed- Epithelialized -Ulcer Cleansing Not Cleansed -Bleeding Controlled with NA #1 right post calf -Time 09:22 11:04 -Correct Patient Yes Yes -Correct Side, Site, Position Yes Yes -Correct Procedure Yes Yes -Procedure Performed Yes Yes -Type of Procedure Debridement Debridement -Clinical Debridement Subcutaneous Subcutaneous -Post Debridement Size (cm) - Length 4.3 4.0 -Post Debridement Size (cm) - Width 1.5 1.5 -Post Debridement Size (cm) - Depth 0.3 0.2 -Total Square Cm 6.45 6.00 -Wound/Ulcer Outcome Not Healed Not Healed -Ulcer Cleansing Rinsed/ Rinsed/ Irrigated with Irrigated with Saline Saline -Foul Odor after Cleansing No No -Bioengineered Tissue No No -Bleeding Controlled with Pressure Pressure -Offloading No No -Treatment Response Procedure Procedure Tolerated Well Tolerated Well Pain Scale: 0-10 Numeric Is Patient Pain Free? Yes Yes Wound debrided: Right posterior calf Type of Debridement: Excisional debridement Anesthesia Used: 5% Lidocaine Gel Depth: Down to and including healthy tissue, in the subcutaneous layer Percentage of wound debrided: 100 Instrument Used: 7mm curette Tissue Removed: Slough Severity: Limited To Skin Breakdown Amount of bleeding with debridement: Mild Bleeding Controlled with: Compression and gauze Patient tolerated procedure well - Additional Wound Wound debrided: Left anterior ankle cluster ulcer Wound Grade/Stage: Stage II Type of Debridement: Excisional debridement Anesthesia Used: 5% Lidocaine Gel Depth: Down to and including healthy tissue, in the subcutaneous layer Instrument Used: 7mm curette Tissue Removed: Slough Severity: Limited To Skin Breakdown Amount of bleeding with debridement: Mild Bleeding Controlled with: Compression and gauze Patient tolerated procedure: Patient tolerated procedure well Assessment/Plan Active Problems Decubitus ulcer of left ankle, stage 2 (Acute) Decubitus ulcer of left leg, stage 2 (Acute) Atrial fibrillation and flutter (Acute) Chronic obstructive pulmonary disease (COPD) (Chronic) Decubitus ulcer of right leg, stage 2 (Acute) Edema, lower extremity (Acute) Assessment: Decubitus ulcers bilateral lower extremities. Bilateral lower leg edema pitting. Congestive heart failure. Atrial fib. Malnutrition Plan: Wash legs with antibacterial soap from knees to toes. Apply Silvadene cream nickel thickness to all open areas cover with gauze Roland double layer Tubigrip's or she may use her own compression stockings with Vu wraps over top. Positive cultures started on linezolid 600 mg twice daily for 10 days. Collect labs CMP CBC with differential magnesium prealbumin. Patient needs to be adjusted on her edema with increase in Lasix daily.
[2019-11-28 13:37] LABS: Absolute Lymphocyte Count 0.36 X10^3/uL (0.83-4.51); Absolute Neutrophil Count 9.8 X10^3/uL (2.0-7.7); Basophil# 0.02 X10^3/uL; Basophil% 0.2 % (0-1); Eosinophil# 0.03 X10^3/uL; Eosinophils% 0.3 % (0-5); Hematocrit 38.2 % (37-47); Hemoglobin 12.4 g/dL (12.0-15.0); Lymphocyte # 0.36 X10^3/ul (4.0); Lymphocyte % 3.2 % (19-41); Mean Corp Hgb Conc 32.5 g/dL (32-36); Mean Corpuscular Hgb 35.7 pg (27.0-32.0); Mean Corpuscular Volume 110.1 fL (81-99); Mean Platelet Vol. 10.1 fl (6.2-12.0); Monocyte% 8.1 % (0-10); NRBC Flagged by Analyzer 0.2 % (0-5); Neutrophil # 9.75 X10^3/uL (2.7-7.7); Neutrophil % 87.2 % (47-70); POSITIVE DIFFERENTIAL YES; POSITIVE MORPHOLOGY YES; Platelet Count 173 K/mm3 (150-450); RBC Distribution Width CV 22.4 % (11.6-14.6); RBC Distribution Width SD 90.2 fl (35.1-43.9); Red Blood Count 3.47 M/mm3 (4.2-5.4); White Blood Count 11.2 K/mm3 (4.4-11.0)
[2019-11-28 13:39] LABS: Differential Indicated SCAN CRITERIA MET
[2019-11-28 14:00] LABS: ALB/GLOB Ratio 0.9 RATIO (0.9-2.4); AST(SGOT) 23 U/L (15-37); Alanine Aminotransfer ALT/SGPT 25 U/L (13-56); Albumin, Serum 2.6 g/dL (3.2-5.0); Alkaline Phosphatase 104 U/L (45-117); Anion Gap 4 (5-15); BUN 31 mg/dL (7-18); Calcium,Total 8.3 mg/dL (8.5-10.1); Chloride 96 mmol/L (98-107); EST Glomerular Filtration Rate 86 mL/min (>60); Est Glom Filt Rate - Afr Amer 104 mL/min (>60); Estimated Creatinine Clearance 38.44 ml/min; Glucose 93 mg/dL (74-106); Magnesium 1.9 mg/dL (1.6-2.6); Potassium 3.4 mmol/L (3.5-5.1); Prealbumin 10.8 mg/dL (20.0-40.0); Protein, Total 5.6 g/dL (6.4-8.2); Sodium Level 135 mmol/L (136-145)
[2019-11-28 14:07] LABS: Anisocytosis 1+
[2019-12-05 11:01] VITALS: BP 127/64; PULSE 63; RESP 22; TEMP 36.6; BMI 23.2
--- NOTE | 2019-12-05 12:47 | PN.PCM_ITS ---
(1) Decubitus ulcer of left ankle, stage 2 Status: Acute Current Visit: Yes Code(s): L89.522 - Pressure ulcer of left ankle, stage 2 (2) Decubitus ulcer of left leg, stage 2 Status: Acute Current Visit: Yes Code(s): L89.892 - Pressure ulcer of other site, stage 2 (3) Atrial fibrillation and flutter Status: Acute Current Visit: Yes Code(s): I48.91 - Unspecified atrial fibrillation; I48.92 - Unspecified atrial flutter (4) Chronic obstructive pulmonary disease (COPD) Status: Chronic Current Visit: Yes Qualifiers: COPD type: COPD with acute exacerbation Qualified Code(s): J44.1 - Chronic obstructive pulmonary disease with (acute) exacerbation Code(s): J44.9 - Chronic obstructive pulmonary disease, unspecified (5) Decubitus ulcer of right leg, stage 2 Status: Acute Current Visit: Yes Code(s): L89.892 - Pressure ulcer of other site, stage 2 (6) Edema, lower extremity Status: Acute Current Visit: Yes Code(s): R60.0 - Localized edema (7) Malnutrition compromising bodily function Status: Acute Current Visit: Yes Code(s): E46 - Unspecified protein-calorie malnutrition (8) Decubitus ulcer of toe, stage 3 Status: Acute Current Visit: Yes Code(s): L89.893 - Pressure ulcer of other site, stage 3 Type of Wound Date of Service: 12/05/19 Chief Complaint: Follow-up on decubitus ulcers right and left lower extremities History of Wound: 74-year-old white female referred to us by her family doctor for wound care on her decubitus ulcers that have developed on bilateral lower extremities. Patient has many comorbidities and is not ambulatory. Daughter is here with her today and states she has a hospital bed and is either in the bed or in the lounge chair. Patient has pitting edema bilateral lower extremities. Patient is on Bumex daily but only uses the Lasix when her weight gain is greater than 3 pounds. Patient is seeping fluid out of skin pores and wounds. This is causing more wounds and cellulitis. Patient was on antibiotics for her cellulitis from her family doctor of [facility] [place] and has finished that. Patient also had MRSA history and that is why she was on Levaquin also. Progress of Wound: Right posterior calf right third toe right Achilles new areas left anterior ankle cluster and left Achilles ulcers are all the same this week. Went over patient's lab work and malnutrition is at 10 20-40 is normal. Patient's daughters states she has not eaten for the last 3 days because things do not taste good not feeling well. Edema is worse especially in the right leg she cannot handle anything touching her right ankle though there is no open area it is just hardened skin that is erythematous but not warm to touch. Still has pitting edema. Kidney functions were normal liver functions were normal basically all of her labs were pretty good except for the malnutrition that is going on which is severe I suggested she might have cancer which upset the patient but they need to look at a source if possible. Tolerating increased Lasix per Cultures came back positive for staph and Corynebacterium started patient on linezolid 600 twice a day for 10 days and is almost care home through. - Physical Exam Vital Signs Temp Pulse Resp BP Pulse Ox 97.8 F 63 22 H 127/64 H 97 12/05/19 11:01 12/05/19 11:01 12/05/19 11:01 12/05/19 11:01 11/21/19 08:25 General: Oriented x3, Cooperative, - - Malnourished HEENT: Atraumatic, PERRLA Oral: Moist Mucosa Neck: Supple, No JVD Lungs: Clear to auscultation, Normal air movement Cardiovascular: Regular rate, Regular Rhythm Abdomen: Bowel Sounds Present, Soft, Non Tender, No Hepato-splenomegaly Extremities: No clubbing, No edema Wound Measurements and Assessment WC - Nurse 1 - General Ulcer Measurement Start: 11/21/19 08:05 Freq: Status: Active Protocol: Activity Type Activity Date Activity User E-Sign Co-Sign Detail Recorded Client Recorded Date Recorded By Document 12/05/19 11:01 DL [id number] 12/05/19 11:14 DL 12/05/19 11:01 Wound Center Nurse 1 [Ulcer Assessment] #6 R 3rd toe -Current Size (cm) - Length 0.6 -Current Size (cm) - Width 0.7 -Current Size (cm) - Depth 0.2 -Total Square Cm 0.42 -Photo Taken Yes -Exudate Amt None Present -Wound Margin Distinct, Outline Attached -Granulation Amt None Present (0 %) -Necrosis Amt Large (67-100%) -Necrotic Tissue Type Adherent Slough -Structure Exposed Bone -Texture (Darshana-wound Skin Appearance) Localized Edema -Moisture (Darshana-wound Skin Appearance No Abnormality ) -Color (Darshana-wound Skin Appearance) Erythema -Temperature (Darshana-wound Skin No Abnormality Appearance) (Pt Warm) -Tenderness on Palpation (Darshana-wound Yes Skin Appearance) -Ulcer Cleansing Wound Cleanser -Foul Odor after Cleansing No -Anesthetic Used 4% Lidocaine Solution #4 LEFT ACHILLES -Current Size (cm) - Length 3 -Current Size (cm) - Width 2.5 -Current Size (cm) - Depth 0.2 -Total Square Cm 7.5 -Photo Taken No -Exudate Amt Medium -Exudate Type Serosanguineous -Wound Margin Distinct, Outline Attached -Granulation Amt None Present (0 %) -Necrosis Amt Medium (34-66%) -Necrotic Tissue Type Adherent Slough -Structure Exposed N/A -Texture (Darshana-wound Skin Appearance) Scarring -Color (Darshana-wound Skin Appearance) Hemosiderin Staining,Rubor -Temperature (Darshana-wound Skin No Abnormality Appearance) (Pt Warm) -Tenderness on Palpation (Darshana-wound Yes Skin Appearance) -Ulcer Cleansing Wound Cleanser -Foul Odor after Cleansing No -Anesthetic Used 4% Lidocaine Solution #3 Left Anterior ankle cluster -Current Size (cm) - Length 3 -Current Size (cm) - Width 1.5 -Current Size (cm) - Depth 0.2 -Total Square Cm 4.5 -Photo Taken No -Exudate Amt Medium -Exudate Type Serosanguineous -Wound Margin Distinct, Outline Attached -Granulation Amt Small (1-33%) -Granulation Quality [place] -Necrosis Amt Large (67-100%) -Necrotic Tissue Type Adherent Slough -Structure Exposed N/A -Texture (Darshana-wound Skin Appearance) Scarring -Moisture (Darshana-wound Skin Appearance No Abnormality ) -Color (Darshana-wound Skin Appearance) Erythema, Hemosiderin Staining,Rubor -Temperature (Darshana-wound Skin No Abnormality Appearance) (Pt Warm) -Tenderness on Palpation (Darshana-wound Yes Skin Appearance) -Ulcer Cleansing Wound Cleanser -Foul Odor after Cleansing No -Anesthetic Used 4% Lidocaine Solution #1 right post calf -Current Size (cm) - Length 3.7 -Current Size (cm) - Width 1.1 -Current Size (cm) - Depth 0.2 -Total Square Cm 4.07 -Photo Taken No -Exudate Amt Small -Exudate Type Serosanguineous -Wound Margin Distinct, Outline Attached -Granulation Amt None Present (0 %) -Necrosis Amt Large (67-100%) -Necrotic Tissue Type Adherent Slough -Structure Exposed N/A -Texture (Darshana-wound Skin Appearance) Scarring -Moisture (Darshana-wound Skin Appearance No Abnormality ) -Color (Darshana-wound Skin Appearance) No Abnormality -Temperature (Darshana-wound Skin No Abnormality Appearance) (Pt Warm) -Tenderness on Palpation (Darshana-wound Yes Skin Appearance) -Ulcer Cleansing Wound Cleanser -Foul Odor after Cleansing No -Anesthetic Used 4% Lidocaine Solution [Edema Assessment] -Right Calf (cm) 36.5 -Right Ankle (cm) 22 -Left Calf (cm) 36.5 -Left Ankle (cm) 23.5 WC - Nurse 2 - General Ulcer CM Notes Start: 11/21/19 08:05 Freq: Status: Active Protocol: Activity Type Activity Date Activity User E-Sign Co-Sign Detail Recorded Client Recorded Date Recorded By Document 12/05/19 11:29 MW [id number] 12/05/19 11:43 MW 12/05/19 11:29 Wound Center Nurse 2 [Procedure/Treatment] #7 RIGHT ACHILLES -Time 11:38 -Correct Patient Yes -Correct Side, Site, Position Yes -Correct Procedure Yes -Procedure Performed Yes -Type of Procedure Debridement -Clinical Debridement Subcutaneous -Post Debridement Size (cm) - Length 1.0 -Post Debridement Size (cm) - Width 2.0 -Post Debridement Size (cm) - Depth 0.2 -Total Square Cm 2.00 -Wound/Ulcer Outcome Not Healed -Ulcer Cleansing Rinsed/ Irrigated with Saline -Foul Odor after Cleansing No -Bioengineered Tissue No -Bleeding Controlled with Pressure -Offloading No -Treatment Response Procedure Tolerated Well #6 R 3rd toe -Time 11:31 -Correct Patient Yes -Correct Side, Site, Position Yes -Correct Procedure Yes -Procedure Performed Yes -Type of Procedure Debridement -Clinical Debridement Subcutaneous -Post Debridement Size (cm) - Length 0.5 -Post Debridement Size (cm) - Width 0.7 -Post Debridement Size (cm) - Depth 0.3 -Total Square Cm 0.35 -Wound/Ulcer Outcome Not Healed -Ulcer Cleansing Rinsed/ Irrigated with Saline -Foul Odor after Cleansing No -Bioengineered Tissue No -Bleeding Controlled with Pressure -Offloading No -Treatment Response Procedure Tolerated Well #4 LEFT ACHILLES -Time 11:29 -Correct Patient Yes -Correct Side, Site, Position Yes -Correct Procedure Yes -Procedure Performed Yes -Type of Procedure Debridement -Clinical Debridement Subcutaneous -Post Debridement Size (cm) - Length 3.4 -Post Debridement Size (cm) - Width 3.0 -Post Debridement Size (cm) - Depth 0.3 -Total Square Cm 10.20 -Wound/Ulcer Outcome Not Healed -Ulcer Cleansing Rinsed/ Irrigated with Saline -Foul Odor after Cleansing No -Bioengineered Tissue No -Bleeding Controlled with Pressure -Offloading No -Treatment Response Procedure Tolerated Well #3 Left Anterior ankle cluster -Time 11:30 -Correct Patient Yes -Correct Side, Site, Position Yes -Correct Procedure Yes -Procedure Performed Yes -Type of Procedure Debridement -Clinical Debridement Subcutaneous -Post Debridement Size (cm) - Length 8.3 -Post Debridement Size (cm) - Width 1.5 -Post Debridement Size (cm) - Depth 0.2 -Total Square Cm 12.45 -Wound/Ulcer Outcome Not Healed -Ulcer Cleansing Rinsed/ Irrigated with Saline -Foul Odor after Cleansing No -Bioengineered Tissue No -Bleeding Controlled with Pressure -Offloading No -Treatment Response Procedure Tolerated Well #1 right post calf -Time 11:30 -Correct Patient Yes -Correct Side, Site, Position Yes -Correct Procedure Yes -Procedure Performed Yes -Type of Procedure Debridement -Clinical Debridement Subcutaneous -Post Debridement Size (cm) - Length 4.0 -Post Debridement Size (cm) - Width 1.3 -Post Debridement Size (cm) - Depth 0.2 -Total Square Cm 5.20 -Wound/Ulcer Outcome Not Healed -Ulcer Cleansing Rinsed/ Irrigated with Saline -Foul Odor after Cleansing No -Bioengineered Tissue No -Bleeding Controlled with Pressure -Offloading No -Treatment Response Procedure Tolerated Well [See Physician Procedure note for Specifics] Pain Scale: 0-10 Numeric [Pain] -Is Patient Pain Free? Yes Musculoskeletal: No Tenderness to Palpation of Joints or Extremities, Tenderness - Most joints tender severe rheumatoid arthritis with herbedens Lymphatic: No Cervical, Supraclavicular, or Inguinal Adenopathy Neurological: Cranial nerves II-XII grossly intact, Neuro grossly intact Psych/Mental Status: Normal Affect, Appropriate, - - Lethargic Debridement Note Post-Debridement Measurements/Treatment WC - Nurse 2 - General Ulcer CM Notes Start: 11/21/19 08:05 Freq: Status: Active Protocol: Activity Type Activity Date Activity User E-Sign Co-Sign Detail Recorded Client Recorded Date Recorded By Document 11/21/19 09:19 MW [id number] 11/21/19 09:31 MW Document 11/28/19 11:03 MW [id number] 11/28/19 11:07 MW Document 12/05/19 11:29 MW [id number] 12/05/19 11:43 MW 11/21/19 11/28/19 12/05/19 09:19 11:03 11:29 Wound Center Nurse 2 #7 RIGHT ACHILLES -Time 11:38 -Correct Patient Yes -Correct Side, Site, Position Yes -Correct Procedure Yes -Procedure Performed Yes -Type of Procedure Debridement -Clinical Debridement Subcutaneous -Post Debridement Size (cm) - Length 1.0 -Post Debridement Size (cm) - Width 2.0 -Post Debridement Size (cm) - Depth 0.2 -Total Square Cm 2.00 -Wound/Ulcer Outcome Not Healed -Ulcer Cleansing Rinsed/ Irrigated with Saline -Foul Odor after Cleansing No -Bioengineered Tissue No -Bleeding Controlled with Pressure -Offloading No -Treatment Response Procedure Tolerated Well #6 R 3rd toe -Time 11:31 -Correct Patient Yes -Correct Side, Site, Position Yes -Correct Procedure Yes -Procedure Performed Yes -Type of Procedure Debridement -Clinical Debridement Subcutaneous -Post Debridement Size (cm) - Length 0.5 -Post Debridement Size (cm) - Width 0.7 -Post Debridement Size (cm) - Depth 0.3 -Total Square Cm 0.35 -Wound/Ulcer Outcome Not Healed -Ulcer Cleansing Rinsed/ Irrigated with Saline -Foul Odor after Cleansing No -Bioengineered Tissue No -Bleeding Controlled with Pressure -Offloading No -Treatment Response Procedure Tolerated Well #5 LEFT POSTERIOR -Time 09:21 -Correct Patient Yes -Correct Side, Site, Position Yes -Correct Procedure Yes -Procedure Performed No -Post Debridement Size (cm) - Length 0 -Post Debridement Size (cm) - Width 0 -Post Debridement Size (cm) - Depth 0 -Total Square Cm 0 -Wound/Ulcer Outcome Healed- Epithelialized -Bleeding Controlled with NA #4 LEFT ACHILLES -Time 09:21 11:03 11:29 -Correct Patient Yes Yes Yes -Correct Side, Site, Position Yes Yes Yes -Correct Procedure Yes Yes Yes -Procedure Performed Yes Yes Yes -Type of Procedure Debridement Debridement Debridement -Clinical Debridement Subcutaneous Subcutaneous Subcutaneous -Post Debridement Size (cm) - Length 3.5 3.0 3.4 -Post Debridement Size (cm) - Width 3.5 3.0 3.0 -Post Debridement Size (cm) - Depth 0.2 0.2 0.3 -Total Square Cm 12.25 9.00 10.20 -Wound/Ulcer Outcome Not Healed Not Healed Not Healed -Ulcer Cleansing Rinsed/ Rinsed/ Rinsed/ Irrigated with Irrigated with Irrigated with Saline Saline Saline -Foul Odor after Cleansing No No No -Bioengineered Tissue No No No -Bleeding Controlled with Pressure Pressure Pressure -Offloading No No No -Treatment Response Procedure Procedure Procedure Tolerated Well Tolerated Well Tolerated Well #3 Left Anterior ankle cluster -Time 09:21 11:04 11:30 -Correct Patient Yes Yes Yes -Correct Side, Site, Position Yes Yes Yes -Correct Procedure Yes Yes Yes -Procedure Performed Yes Yes Yes -Type of Procedure Debridement Debridement Debridement -Clinical Debridement Subcutaneous Subcutaneous Subcutaneous -Post Debridement Size (cm) - Length 9.0 8.3 8.3 -Post Debridement Size (cm) - Width 1.0 1.5 1.5 -Post Debridement Size (cm) - Depth 0.2 0.2 0.2 -Total Square Cm 9.00 12.45 12.45 -Wound/Ulcer Outcome Not Healed Not Healed Not Healed -Ulcer Cleansing Rinsed/ Rinsed/ Rinsed/ Irrigated with Irrigated with Irrigated with Saline Saline Saline -Foul Odor after Cleansing No No No -Bioengineered Tissue No No No -Bleeding Controlled with Pressure Pressure Pressure -Offloading No No No -Treatment Response Procedure Procedure Procedure Tolerated Well Tolerated Well Tolerated Well #2 Left Med Head -Time 09:22 -Correct Patient Yes -Correct Side, Site, Position Yes -Correct Procedure Yes -Procedure Performed No -Wound/Ulcer Outcome Healed- Epithelialized -Ulcer Cleansing Not Cleansed -Bleeding Controlled with NA #1 right post calf -Time 09:22 11:04 11:30 -Correct Patient Yes Yes Yes -Correct Side, Site, Position Yes Yes Yes -Correct Procedure Yes Yes Yes -Procedure Performed Yes Yes Yes -Type of Procedure Debridement Debridement Debridement -Clinical Debridement Subcutaneous Subcutaneous Subcutaneous -Post Debridement Size (cm) - Length 4.3 4.0 4.0 -Post Debridement Size (cm) - Width 1.5 1.5 1.3 -Post Debridement Size (cm) - Depth 0.3 0.2 0.2 -Total Square Cm 6.45 6.00 5.20 -Wound/Ulcer Outcome Not Healed Not Healed Not Healed -Ulcer Cleansing Rinsed/ Rinsed/ Rinsed/ Irrigated with Irrigated with Irrigated with Saline Saline Saline -Foul Odor after Cleansing No No No -Bioengineered Tissue No No No -Bleeding Controlled with Pressure Pressure Pressure -Offloading No No No -Treatment Response Procedure Procedure Procedure Tolerated Well Tolerated Well Tolerated Well Pain Scale: 0-10 Numeric Is Patient Pain Free? Yes Yes Yes Wound debrided: Right posterior calf ulcer Wound Grade/Stage: Stage II Type of Debridement: Excisional debridement Anesthesia Used: 5% Lidocaine Gel Depth: Down to and including healthy tissue, in the subcutaneous layer Percentage of wound debrided: 100 Instrument Used: 5mm curette Tissue Removed: Slough Severity: Fat Layer Exposed Amount of bleeding with debridement: None Bleeding Controlled with: Pressure Patient tolerated procedure well - Additional Wound Wound debrided: Right third toe anterior ulcer Wound Grade/Stage: Grade 3 Type of Debridement: Excisional debridement Anesthesia Used: 5% Lidocaine Gel Depth: to bone Percentage of wound debrided: 100 Instrument Used: 3mm curette Tissue Removed: Devitalized tissue Severity: Limited To Skin Breakdown Amount of bleeding with debridement: None Bleeding Controlled with: Compression and gauze Patient tolerated procedure: Patient tolerated procedure well - Additional Wound Wound debrided: Right Achilles ulcer Wound Grade/Stage: Stage II Type of Debridement: Excisional debridement Anesthesia Used: 5% Lidocaine Gel Depth: Down to and including healthy tissue, in the subcutaneous layer Percentage of wound debrided: 100 Instrument Used: 5mm curette Tissue Removed: Slough Severity: Limited To Skin Breakdown Bleeding Controlled with: Pressure Patient tolerated procedure: Patient tolerated procedure well - Additional Wound Wound debrided: Left anterior ankle Wound Grade/Stage: Stage II Type of Debridement: Excisional debridement Depth: Down to and including healthy tissue, in the subcutaneous layer Percentage of wound debrided: 100 Instrument Used: 5mm curette Tissue Removed: Slough Severity: Limited To Skin Breakdown Amount of bleeding with debridement: None Bleeding Controlled with: Pressure Patient tolerated procedure: Patient tolerated procedure well - Additional Wound Wound debrided: Left Achilles ulcer Wound Grade/Stage: Stage II Type of Debridement: Excisional debridement Anesthesia Used: 5% Lidocaine Gel Depth: Down to and including healthy tissue, in the subcutaneous layer Percentage of wound debrided: 100 Instrument Used: 5mm curette Tissue Removed: Slough Severity: Limited To Skin Breakdown Amount of bleeding with debridement: Mild Bleeding Controlled with: Compression and gauze Patient tolerated procedure: Patient tolerated procedure well Assessment/Plan Active Problems Decubitus ulcer of left ankle, stage 2 (Acute) Decubitus ulcer of left leg, stage 2 (Acute) Atrial fibrillation and flutter (Acute) Chronic obstructive pulmonary disease (COPD) (Chronic) Decubitus ulcer of right leg, stage 2 (Acute) Edema, lower extremity (Acute) Malnutrition compromising bodily function (Acute) Decubitus ulcer of toe, stage 3 (Acute) Assessment: Decubitus ulcers bilateral lower extremities. Bilateral lower leg edema pitting. Congestive heart failure. Atrial fib. Malnutrition Plan: Wash legs with antibacterial soap from knees to toes. Apply Aquacel extra moistened to all open areas cover with gauze Roland double layer Tubigrip's or she may use her own compression stockings with Vu wraps over top. Positive cultures started on linezolid 600 mg twice daily for 10 days. Patient needs to be adjusted on her edema with increase in Lasix daily. Follow-up 2 weeks
--- NOTE | 2019-12-14 16:02 | WC ---
Addendum entered by Isela Bates 12/14/19 16:03: Received a call from patient's daughter Paloma at 1510 today. She wanted to give us an FYI update that she took patient to [facility] ER this past Tuesday12/11/19 with dx of low wbc and platelet count. Patient was given platelets and sent home. She is scheduled to see a well surveying engineer on 12/19/19. Will update Itzel Nair CNP. Original Note: Recieved a call from patient's daughter Kyle [phone]
== END 2019-12-13 23:59 ==
LOC: WC 11:00
PROVIDERS: Visit Provider Nurse Practitioner
DX: L89.522 Pressure ulcer of left ankle, stage 2 (principal); L89.892 Pressure ulcer of other site, stage 2; L89.893 Pressure ulcer of other site, stage 3; I48.91 Unspecified atrial fibrillation; I48.92 Unspecified atrial flutter; I50.9 Heart failure, unspecified; J44.9 Chronic obstructive pulmonary disease, unspecified; M06.9 Rheumatoid arthritis, unspecified; Z79.52 Long term (current) use of systemic steroids; Z79.899 Other long term (current) drug therapy; Z86.14 Personal history of Methicillin resistant Staphylococcus aureus infection
CPT/HCPCS: 11042; 11045; 80053; 83735; 84134; 85025; 87070; 87075; 87077; 87186; 87205; 99213; G0463

== ENCOUNTER 2020-01-09 10:30 | Outpatient (RCR) | payer MEDICARE, SELFPAY ==
[2019-12-14 00:21] VITALS: BP 127/64; PULSE 63; RESP 22; TEMP 36.6; O2SAT 97
[2019-12-26 11:20] VITALS: BMI 23.2
--- NOTE | 2019-12-26 11:51 | PCM.WC.PN ---
(1) Atrial fibrillation and flutter Status: Acute Current Visit: Yes Code(s): I48.91 - Unspecified atrial fibrillation; I48.92 - Unspecified atrial flutter (2) Decubitus ulcer of left ankle, stage 2 Status: Acute Current Visit: Yes Code(s): L89.522 - Pressure ulcer of left ankle, stage 2 (3) Decubitus ulcer of left leg, stage 2 Status: Acute Current Visit: Yes Code(s): L89.892 - Pressure ulcer of other site, stage 2 (4) Decubitus ulcer of right leg, stage 2 Status: Acute Current Visit: Yes Code(s): L89.892 - Pressure ulcer of other site, stage 2 (5) Edema, lower extremity Status: Acute Current Visit: Yes Code(s): R60.0 - Localized edema (6) Malnutrition compromising bodily function Status: Acute Current Visit: Yes Code(s): E46 - Unspecified protein-calorie malnutrition Type of Wound Date of Service: 12/26/19 Chief Complaint: Follow-up on decubitus ulcers right and left lower extremities History of Wound: 74-year-old white female referred to us by her family doctor for wound care on her decubitus ulcers that have developed on bilateral lower extremities. Patient has many comorbidities and is not ambulatory. Daughter is here with her today and states she has a hospital bed and is either in the bed or in the lounge chair. Patient has pitting edema bilateral lower extremities. Patient is on Bumex daily but only uses the Lasix when her weight gain is greater than 3 pounds. Patient is seeping fluid out of skin pores and wounds. This is causing more wounds and cellulitis. Patient was on antibiotics for her cellulitis from her family doctor of Levaquin and has finished that. Patient also had MRSA history and that is why she was on Levaquin also. Progress of Wound: Right posterior calf right third toe right Achilles new areas left anterior ankle cluster and left Achilles ulcers are all the same this week. Went over patient's lab work and malnutrition is at 10 20-40 is normal. Patient's daughters states she has not eaten for the last 3 days because things do not taste good not feeling well. Edema is worse especially in the right leg she cannot handle anything touching her right ankle though there is no open area it is just hardened skin that is erythematous but not warm to touch. Still has pitting edema. Kidney functions were normal liver functions were normal basically all of her labs were pretty good except for the malnutrition that is going on which is severe I suggested she might have cancer which upset the patient but they need to look at a source if possible. Tolerating increased Lasix per [facility] came back positive for staph and Corynebacterium started patient on linezolid 600 twice a day for 10 days and is almost detention through. Today all the wounds are intact but improving less angry around the perimeter of the wounds still has a lot of slough in the wounds. Is intolerant to the Aquacel extra and switch back to Silvadene which is fine. Daughter states was seen by oncology and given a blood transfusion and has been doing much better is also receiving PT OT ST and patient seems to be improved and spirits are much higher than what they have been in the past. Today is a bad day for pain and patient is intolerant to debriding there will be no debridement today. - Physical Exam Vital Signs Temp Pulse Resp BP Pulse Ox 97.8 F 63 22 H 127/64 H 97 12/14/19 00:21 12/14/19 00:21 12/14/19 00:21 12/14/19 00:21 12/14/19 00:21 General: Oriented x3, Cooperative, Well developed HEENT: Atraumatic, PERRLA Oral: Moist Mucosa Neck: Supple, No JVD Lungs: Clear to auscultation, Normal air movement Cardiovascular: Regular rate, Regular Rhythm Abdomen: Bowel Sounds Present, Soft, Non Tender, No Hepato-splenomegaly Extremities: No clubbing, Edema Wound Measurements and Assessment WC - Nurse 1 - General Ulcer Measurement Start: 12/26/19 11:20 Freq: Status: Active Protocol: Activity Type Activity Date Activity User E-Sign Co-Sign Detail Recorded Client Recorded Date Recorded By Document 12/26/19 11:20 MW [id number] 12/26/19 11:35 MW 12/26/19 11:20 Wound Center Nurse 1 [Ulcer Assessment] 8. R anterior ankle cluster -Combined with other wound No -Current Size (cm) - Length 3.5 -Current Size (cm) - Width 1 -Current Size (cm) - Depth 0.1 -Total Square Cm 3.5 -Photo Taken Yes -Tunneling No -Undermining/Tunneling No -Circular Undermining No -Exudate Amt Small -Exudate Type Serosanguineous -Wound Margin Flat & Intact -Granulation Amt Medium (34-66%) -Granulation Quality [place] -Slough/Fibrin Yes -Necrosis Amt Small (1-33%) -Structure Exposed N/A -Texture (Darshana-wound Skin Appearance) Assessed -Moisture (Darshana-wound Skin Appearance Assessed ) -Color (Darshana-wound Skin Appearance) Erythema -Temperature (Darshana-wound Skin No Abnormality Appearance) (Pt Warm) -Tenderness on Palpation (Darshana-wound No Skin Appearance) -Ulcer Cleansing Wound Cleanser -Foul Odor after Cleansing No -Anesthetic Used 4% Lidocaine Solution #7 RIGHT ACHILLES -Combined with other wound No -Current Size (cm) - Length 0.5 -Current Size (cm) - Width 0.9 -Current Size (cm) - Depth 0.1 -Total Square Cm 0.45 -Photo Taken Yes -Tunneling No -Undermining/Tunneling No -Circular Undermining No -Exudate Amt Small -Exudate Type Serosanguineous -Wound Margin Flat & Intact -Granulation Amt Medium (34-66%) -Granulation Quality [place] -Slough/Fibrin Yes -Necrosis Amt Small (1-33%) -Necrotic Tissue Type Adherent Slough -Structure Exposed N/A -Texture (Darshana-wound Skin Appearance) Assessed -Moisture (Darshana-wound Skin Appearance Assessed ) -Color (Darshana-wound Skin Appearance) Assessed, Erythema -Temperature (Darshana-wound Skin No Abnormality Appearance) (Pt Warm) -Tenderness on Palpation (Darshana-wound No Skin Appearance) -Ulcer Cleansing Wound Cleanser -Foul Odor after Cleansing No -Anesthetic Used 4% Lidocaine Solution #6 R 3rd toe -Combined with other wound No -Current Size (cm) - Length 0.1 -Current Size (cm) - Width 0.1 -Current Size (cm) - Depth 0.1 -Total Square Cm 0.01 -Photo Taken Yes -Tunneling No -Undermining/Tunneling No -Circular Undermining No -Exudate Amt None Present -Granulation Amt None Present (0 %) -Slough/Fibrin Yes -Necrosis Amt Large (67-100%) -Necrotic Tissue Type Adherent Slough -Structure Exposed N/A -Texture (Darshana-wound Skin Appearance) Assessed -Moisture (Darshana-wound Skin Appearance Assessed ) -Color (Darshana-wound Skin Appearance) Assessed -Temperature (Darshana-wound Skin No Abnormality Appearance) (Pt Warm) -Tenderness on Palpation (Darshana-wound No Skin Appearance) -Ulcer Cleansing Wound Cleanser -Foul Odor after Cleansing No -Anesthetic Used 4% Lidocaine Solution #4 LEFT ACHILLES -Combined with other wound No -Current Size (cm) - Length 2.9 -Current Size (cm) - Width 2.5 -Current Size (cm) - Depth 0.2 -Total Square Cm 7.25 -Photo Taken Yes -Tunneling No -Undermining/Tunneling No -Circular Undermining No -Exudate Amt Small -Exudate Type Serosanguineous -Wound Margin Flat & Intact -Granulation Amt Medium (34-66%) -Granulation Quality [place] -Slough/Fibrin Yes -Necrosis Amt Medium (34-66%) -Necrotic Tissue Type Adherent Slough -Structure Exposed N/A -Texture (Darshana-wound Skin Appearance) Assessed -Moisture (Darshana-wound Skin Appearance Assessed ) -Color (Darshana-wound Skin Appearance) Erythema -Temperature (Darshana-wound Skin No Abnormality Appearance) (Pt Warm) -Tenderness on Palpation (Dasrhana-wound No Skin Appearance) -Ulcer Cleansing Wound Cleanser -Foul Odor after Cleansing No -Anesthetic Used 4% Lidocaine Solution #3 Left Anterior ankle cluster -Combined with other wound No -Current Size (cm) - Length 2.8 -Current Size (cm) - Width 1.1 -Current Size (cm) - Depth 0.2 -Total Square Cm 3.08 -Photo Taken Yes -Tunneling No -Undermining/Tunneling No -Circular Undermining No -Exudate Amt Small -Exudate Type Serosanguineous -Wound Margin Flat & Intact -Granulation Amt Medium (34-66%) -Granulation Quality [place] -Slough/Fibrin Yes -Necrosis Amt Small (1-33%) -Necrotic Tissue Type Adherent Slough -Structure Exposed N/A -Texture (Darshana-wound Skin Appearance) Assessed -Moisture (Darshana-wound Skin Appearance Assessed ) -Color (Darshana-wound Skin Appearance) Erythema -Tenderness on Palpation (Darshana-wound Yes Skin Appearance) -Ulcer Cleansing Wound Cleanser -Foul Odor after Cleansing No -Anesthetic Used 4% Lidocaine Solution #1 right post calf -Combined with other wound No -Current Size (cm) - Length 3.2 -Current Size (cm) - Width 0.7 -Current Size (cm) - Depth 0.2 -Total Square Cm 2.24 -Photo Taken Yes -Tunneling No -Undermining/Tunneling No -Circular Undermining No -Exudate Amt Small -Exudate Type Serosanguineous -Wound Margin Flat & Intact -Granulation Amt Medium (34-66%) -Granulation Quality [place] -Slough/Fibrin Yes -Necrosis Amt Small (1-33%) -Necrotic Tissue Type Adherent Slough -Structure Exposed N/A -Texture (Darshana-wound Skin Appearance) Assessed -Moisture (Darshana-wound Skin Appearance Assessed ) -Color (Darshana-wound Skin Appearance) Erythema -Temperature (Darshana-wound Skin No Abnormality Appearance) (Pt Warm) -Tenderness on Palpation (Darshana-wound No Skin Appearance) -Ulcer Cleansing Rinsed/ Irrigated with Saline -Foul Odor after Cleansing No -Anesthetic Used 4% Lidocaine Solution WC - Nurse 2 - General Ulcer CM Notes Start: 12/26/19 11:20 Freq: Status: Active Protocol: Activity Type Activity Date Activity User E-Sign Co-Sign Detail Recorded Client Recorded Date Recorded By Document 12/26/19 11:39 MW [id number] 12/26/19 11:46 MW 12/26/19 11:39 Wound Center Nurse 2 [Procedure/Treatment] 8. R anterior ankle cluster -Time 11:40 -Correct Patient Yes -Correct Side, Site, Position Yes -Correct Procedure Yes -Procedure Performed No -Post Debridement Size (cm) - Length 3.5 -Post Debridement Size (cm) - Width 1.2 -Post Debridement Size (cm) - Depth 0.2 -Total Square Cm 4.20 -Wound/Ulcer Outcome Not Healed -Ulcer Cleansing Not Cleansed -Foul Odor after Cleansing No -Bioengineered Tissue No -Bleeding Controlled with NA -Offloading No -Treatment Response Procedure Tolerated Well #7 RIGHT ACHILLES -Time 11:44 -Correct Patient Yes -Correct Side, Site, Position Yes -Correct Procedure Yes -Procedure Performed No -Post Debridement Size (cm) - Length 0.5 -Post Debridement Size (cm) - Width 1.0 -Post Debridement Size (cm) - Depth 0.1 -Total Square Cm 0.50 -Wound/Ulcer Outcome Not Healed -Ulcer Cleansing Not Cleansed -Foul Odor after Cleansing No -Bioengineered Tissue No -Bleeding Controlled with NA -Offloading No -Treatment Response Procedure Tolerated Well #6 R 3rd toe -Time 11:44 -Correct Patient Yes -Correct Side, Site, Position Yes -Correct Procedure Yes -Procedure Performed No -Post Debridement Size (cm) - Length 0 -Post Debridement Size (cm) - Width 0 -Post Debridement Size (cm) - Depth 0 -Total Square Cm 0 -Wound/Ulcer Outcome Healed- Epithelialized #4 LEFT ACHILLES -Time 11:44 -Correct Patient Yes -Correct Side, Site, Position Yes -Correct Procedure Yes -Procedure Performed No -Post Debridement Size (cm) - Length 3.0 -Post Debridement Size (cm) - Width 2.3 -Post Debridement Size (cm) - Depth 0.3 -Total Square Cm 6.90 -Wound/Ulcer Outcome Not Healed -Ulcer Cleansing Not Cleansed -Foul Odor after Cleansing No -Bioengineered Tissue No -Bleeding Controlled with NA -Offloading No -Treatment Response Procedure Tolerated Well #3 Left Anterior ankle cluster -Time 11:45 -Correct Patient Yes -Correct Side, Site, Position Yes -Correct Procedure Yes -Procedure Performed No -Post Debridement Size (cm) - Length 2.8 -Post Debridement Size (cm) - Width 0.9 -Post Debridement Size (cm) - Depth 0.2 -Total Square Cm 2.52 -Wound/Ulcer Outcome Not Healed -Ulcer Cleansing Not Cleansed -Foul Odor after Cleansing No -Bioengineered Tissue No -Bleeding Controlled with NA -Offloading No -Treatment Response Procedure Tolerated Well #1 right post calf -Time 11:45 -Correct Patient Yes -Correct Side, Site, Position Yes -Correct Procedure Yes -Procedure Performed No -Post Debridement Size (cm) - Length 3.5 -Post Debridement Size (cm) - Width 0.7 -Post Debridement Size (cm) - Depth 0.3 -Total Square Cm 2.45 -Wound/Ulcer Outcome Not Healed -Ulcer Cleansing Not Cleansed -Foul Odor after Cleansing No -Bioengineered Tissue No -Bleeding Controlled with NA -Offloading No -Treatment Response Procedure Tolerated Well [See Physician Procedure note for Specifics] Pain Scale: 0-10 Numeric [Pain] -Is Patient Pain Free? Yes Musculoskeletal: No Tenderness to Palpation of Joints or Extremities Lymphatic: No Cervical, Supraclavicular, or Inguinal Adenopathy Neurological: Cranial nerves II-XII grossly intact, Neuro grossly intact Psych/Mental Status: Normal Affect, Appropriate, Alert and oriented to time, place, person, mood and affect Debridement Note Post-Debridement Measurements/Treatment WC - Nurse 2 - General Ulcer CM Notes Start: 12/26/19 11:20 Freq: Status: Active Protocol: Activity Type Activity Date Activity User E-Sign Co-Sign Detail Recorded Client Recorded Date Recorded By Document 12/26/19 11:39 MW [id number] 12/26/19 11:46 MW 12/26/19 11:39 Wound Center Nurse 2 8. R anterior ankle cluster -Time 11:40 -Correct Patient Yes -Correct Side, Site, Position Yes -Correct Procedure Yes -Procedure Performed No -Post Debridement Size (cm) - Length 3.5 -Post Debridement Size (cm) - Width 1.2 -Post Debridement Size (cm) - Depth 0.2 -Total Square Cm 4.20 -Wound/Ulcer Outcome Not Healed -Ulcer Cleansing Not Cleansed -Foul Odor after Cleansing No -Bioengineered Tissue No -Bleeding Controlled with NA -Offloading No -Treatment Response Procedure Tolerated Well #7 RIGHT ACHILLES -Time 11:44 -Correct Patient Yes -Correct Side, Site, Position Yes -Correct Procedure Yes -Procedure Performed No -Post Debridement Size (cm) - Length 0.5 -Post Debridement Size (cm) - Width 1.0 -Post Debridement Size (cm) - Depth 0.1 -Total Square Cm 0.50 -Wound/Ulcer Outcome Not Healed -Ulcer Cleansing Not Cleansed -Foul Odor after Cleansing No -Bioengineered Tissue No -Bleeding Controlled with NA -Offloading No -Treatment Response Procedure Tolerated Well #6 R 3rd toe -Time 11:44 -Correct Patient Yes -Correct Side, Site, Position Yes -Correct Procedure Yes -Procedure Performed No -Post Debridement Size (cm) - Length 0 -Post Debridement Size (cm) - Width 0 -Post Debridement Size (cm) - Depth 0 -Total Square Cm 0 -Wound/Ulcer Outcome Healed- Epithelialized #4 LEFT ACHILLES -Time 11:44 -Correct Patient Yes -Correct Side, Site, Position Yes -Correct Procedure Yes -Procedure Performed No -Post Debridement Size (cm) - Length 3.0 -Post Debridement Size (cm) - Width 2.3 -Post Debridement Size (cm) - Depth 0.3 -Total Square Cm 6.90 -Wound/Ulcer Outcome Not Healed -Ulcer Cleansing Not Cleansed -Foul Odor after Cleansing No -Bioengineered Tissue No -Bleeding Controlled with NA -Offloading No -Treatment Response Procedure Tolerated Well #3 Left Anterior ankle cluster -Time 11:45 -Correct Patient Yes -Correct Side, Site, Position Yes -Correct Procedure Yes -Procedure Performed No -Post Debridement Size (cm) - Length 2.8 -Post Debridement Size (cm) - Width 0.9 -Post Debridement Size (cm) - Depth 0.2 -Total Square Cm 2.52 -Wound/Ulcer Outcome Not Healed -Ulcer Cleansing Not Cleansed -Foul Odor after Cleansing No -Bioengineered Tissue No -Bleeding Controlled with NA -Offloading No -Treatment Response Procedure Tolerated Well #1 right post calf -Time 11:45 -Correct Patient Yes -Correct Side, Site, Position Yes -Correct Procedure Yes -Procedure Performed No -Post Debridement Size (cm) - Length 3.5 -Post Debridement Size (cm) - Width 0.7 -Post Debridement Size (cm) - Depth 0.3 -Total Square Cm 2.45 -Wound/Ulcer Outcome Not Healed -Ulcer Cleansing Not Cleansed -Foul Odor after Cleansing No -Bioengineered Tissue No -Bleeding Controlled with NA -Offloading No -Treatment Response Procedure Tolerated Well Pain Scale: 0-10 Numeric Is Patient Pain Free? Yes No debridement was completed today Assessment/Plan Active Problems Decubitus ulcer of left ankle, stage 2 (Acute) Decubitus ulcer of left leg, stage 2 (Acute) Atrial fibrillation and flutter (Acute) Decubitus ulcer of right leg, stage 2 (Acute) Edema, lower extremity (Acute) Malnutrition compromising bodily function (Acute) Assessment: Decubitus ulcers bilateral lower extremities. Bilateral lower leg edema pitting. Congestive heart failure. Atrial fib. Malnutrition Plan: Wash legs with antibacterial soap from knees to toes. Apply Silvadene cream to all open areas cover with gauze Roland double layer Tubigrip's or she may use her own compression stockings with Vu wraps over top. Follow-up 2 weeks
[2020-01-09 10:44] VITALS: BP 102/61; PULSE 85; RESP 20; TEMP 36.5; BMI 23.2
--- NOTE | 2020-01-09 11:14 | PCM.WC.PN ---
(1) Atrial fibrillation and flutter Status: Acute Current Visit: Yes Code(s): I48.91 - Unspecified atrial fibrillation; I48.92 - Unspecified atrial flutter (2) Decubitus ulcer of left ankle, stage 2 Status: Acute Current Visit: Yes Code(s): L89.522 - Pressure ulcer of left ankle, stage 2 (3) Decubitus ulcer of left leg, stage 2 Status: Acute Current Visit: Yes Code(s): L89.892 - Pressure ulcer of other site, stage 2 (4) Decubitus ulcer of right leg, stage 2 Status: Acute Current Visit: Yes Code(s): L89.892 - Pressure ulcer of other site, stage 2 (5) Edema, lower extremity Status: Acute Current Visit: Yes Code(s): R60.0 - Localized edema (6) Malnutrition compromising bodily function Status: Acute Current Visit: Yes Code(s): E46 - Unspecified protein-calorie malnutrition Type of Wound Date of Service: 01/09/20 Chief Complaint: Follow-up on decubitus ulcers right and left lower extremities History of Wound: 74-year-old white female referred to us by her family doctor for wound care on her decubitus ulcers that have developed on bilateral lower extremities. Patient has many comorbidities and is not ambulatory. Daughter is here with her today and states she has a hospital bed and is either in the bed or in the lounge chair. Patient has pitting edema bilateral lower extremities. Patient is on Bumex daily but only uses the Lasix when her weight gain is greater than 3 pounds. Patient is seeping fluid out of skin pores and wounds. This is causing more wounds and cellulitis. Patient was on antibiotics for her cellulitis from her family doctor of [facility] and has finished that. Patient also had MRSA history and that is why she was on Levaquin also. Progress of Wound: Went over patient's lab work and malnutrition is at 10 20-40 is normal. Patient's daughters states she she is now getting PT OT and ST coloring and able to get out of bed and move them and is much better. Edema is much better in her lower extremities sometimes her daughter says third she she has no edema in her lower ankles which is really good. Finally got her a gel cushion to sit on. Tolerating increased Lasix per [facility] came back positive and were treated properly. Today all the wounds are intact but improving smaller less angry around the perimeter of the wounds still has a lot of slough in the wounds. Real tolerant to the debridement still but is better. Is intolerant to the Aquacel extra and switch back to Silvadene which is fine. Daughter states was seen by oncology and given a blood transfusion and has been doing much better is also receiving PT OT ST and patient seems to be improved and spirits are much higher than what they have been in the past. Today is a bad day for pain and patient is intolerant to debriding there will be no debridement today. - Physical Exam Vital Signs Temp Pulse Resp BP Pulse Ox 97.7 F L 85 20 H 102/61 97 01/09/20 10:44 01/09/20 10:44 01/09/20 10:44 01/09/20 10:44 12/14/19 00:21 General: Oriented x3, Cooperative, Well developed HEENT: Atraumatic, PERRLA Oral: Moist Mucosa Neck: Supple, No JVD Lungs: Clear to auscultation, Normal air movement Cardiovascular: Regular rate, Regular Rhythm Abdomen: Bowel Sounds Present, Soft, Non Tender, No Hepato-splenomegaly Extremities: No clubbing, No edema Wound Measurements and Assessment WC - Nurse 1 - General Ulcer Measurement Start: 12/26/19 11:20 Freq: Status: Active Protocol: Activity Type Activity Date Activity User E-Sign Co-Sign Detail Recorded Client Recorded Date Recorded By Document 01/09/20 10:44 [facility] [id number] 01/09/20 10:56 [facility] 01/09/20 10:44 Wound Center Nurse 1 [Ulcer Assessment] 8. R anterior ankle cluster -Combined with other wound No -Current Size (cm) - Length 2.9 -Current Size (cm) - Width 1 -Current Size (cm) - Depth 0.2 -Total Square Cm 2.9 -Photo Taken No -Epithelialization None Present -Tunneling No -Undermining/Tunneling No -Circular Undermining No -Exudate Amt Small -Exudate Type Serous -Wound Margin Distinct, Outline Attached -Granulation Amt None Present (0 %) -Slough/Fibrin Yes -Necrosis Amt Large (67-100%) -Necrotic Tissue Type Adherent Slough -Texture (Darshana-wound Skin Appearance) Assessed -Moisture (Darshana-wound Skin Appearance Assessed, ) Maceration -Color (Darshana-wound Skin Appearance) Assessed, Erythema,Palor -Temperature (Darshana-wound Skin No Abnormality Appearance) (Pt Warm) -Tenderness on Palpation (Darshana-wound Yes Skin Appearance) -Ulcer Cleansing SOAPY WATER -Foul Odor after Cleansing No -Anesthetic Used 4% Lidocaine Solution #7 RIGHT ACHILLES -Combined with other wound No -Current Size (cm) - Length 0.3 -Current Size (cm) - Width 0.9 -Current Size (cm) - Depth 0.1 -Total Square Cm 0.27 -Photo Taken No -Epithelialization None Present -Tunneling No -Undermining/Tunneling No -Circular Undermining No -Exudate Amt Small -Exudate Type Serous -Wound Margin Distinct, Outline Attached -Granulation Amt None Present (0 %) -Slough/Fibrin Yes -Necrosis Amt Large (67-100%) -Necrotic Tissue Type Adherent Slough -Texture (Darshana-wound Skin Appearance) Assessed, Scarring -Moisture (Darshana-wound Skin Appearance Assessed, ) Maceration -Color (Darshana-wound Skin Appearance) Assessed, Erythema,Palor -Temperature (Darshana-wound Skin No Abnormality Appearance) (Pt Warm) -Tenderness on Palpation (Darshana-wound Yes Skin Appearance) -Ulcer Cleansing SOAPY WATER -Foul Odor after Cleansing No -Anesthetic Used 4% Lidocaine Solution #4 LEFT ACHILLES -Combined with other wound No -Current Size (cm) - Length 3 -Current Size (cm) - Width 3 -Current Size (cm) - Depth 0.2 -Total Square Cm 9 -Photo Taken No -Epithelialization None Present -Tunneling No -Undermining/Tunneling No -Circular Undermining No -Exudate Amt Small -Exudate Type Serous -Wound Margin Distinct, Outline Attached -Granulation Amt None Present (0 %) -Slough/Fibrin Yes -Necrosis Amt Large (67-100%) -Necrotic Tissue Type Adherent Slough -Texture (Darshana-wound Skin Appearance) Assessed, Scarring -Moisture (Darshana-wound Skin Appearance Assessed, ) Maceration -Color (Darshana-wound Skin Appearance) Assessed, Erythema,Palor -Temperature (Darshana-wound Skin No Abnormality Appearance) (Pt Warm) -Tenderness on Palpation (Darshana-wound Yes Skin Appearance) -Ulcer Cleansing SOAPY WATER -Foul Odor after Cleansing No -Anesthetic Used 4% Lidocaine Solution #3 Left Anterior ankle cluster -Combined with other wound No -Current Size (cm) - Length 2.7 -Current Size (cm) - Width 1.2 -Current Size (cm) - Depth 0.2 -Total Square Cm 3.24 -Photo Taken No -Epithelialization None Present -Tunneling No -Undermining/Tunneling No -Circular Undermining No -Exudate Amt Small -Exudate Type Serous -Wound Margin Distinct, Outline Attached -Granulation Amt None Present (0 %) -Slough/Fibrin Yes -Necrosis Amt Large (67-100%) -Necrotic Tissue Type Adherent Slough -Texture (Darshana-wound Skin Appearance) Assessed, Scarring -Moisture (Darshana-wound Skin Appearance Assessed, ) Maceration -Color (Darshana-wound Skin Appearance) Assessed, Erythema,Palor -Temperature (Darshana-wound Skin No Abnormality Appearance) (Pt Warm) -Tenderness on Palpation (Darshana-wound Yes Skin Appearance) -Ulcer Cleansing SOAPY WATER -Foul Odor after Cleansing No -Anesthetic Used 4% Lidocaine Solution #1 right post calf -Combined with other wound No -Current Size (cm) - Length 3.5 -Current Size (cm) - Width 1 -Current Size (cm) - Depth 0.2 -Total Square Cm 3.5 -Photo Taken No -Epithelialization None Present -Tunneling No -Undermining/Tunneling No -Circular Undermining No -Exudate Amt Small -Exudate Type Serous -Wound Margin Distinct, Outline Attached -Granulation Amt None Present (0 %) -Slough/Fibrin Yes -Necrosis Amt Large (67-100%) -Necrotic Tissue Type Adherent Slough -Texture (Darshana-wound Skin Appearance) Assessed, Scarring -Moisture (Darshana-wound Skin Appearance Assessed, ) Maceration -Color (Darshana-wound Skin Appearance) Assessed, Erythema,Palor -Temperature (Darshana-wound Skin No Abnormality Appearance) (Pt Warm) -Tenderness on Palpation (Darshana-wound Yes Skin Appearance) -Ulcer Cleansing SOAPY WATER -Foul Odor after Cleansing No -Anesthetic Used 4% Lidocaine Solution [Edema Assessment] -Lower Limb Edema Present Yes -Right Calf (cm) 37.5 -Right Ankle (cm) 22.9 -Left Calf (cm) 36 -Left Ankle (cm) 23.6 WC - Nurse 2 - General Ulcer CM Notes Start: 12/26/19 11:20 Freq: Status: Active Protocol: Activity Type Activity Date Activity User E-Sign Co-Sign Detail Recorded Client Recorded Date Recorded By Document 01/09/20 11:01 MW [id number] 01/09/20 11:08 MW 01/09/20 11:01 Wound Center Nurse 2 [Procedure/Treatment] 8. R anterior ankle cluster -Time 11:02 -Correct Patient Yes -Correct Side, Site, Position Yes -Correct Procedure Yes -Procedure Performed Yes -Type of Procedure Debridement -Clinical Debridement Subcutaneous -Post Debridement Size (cm) - Length 2.5 -Post Debridement Size (cm) - Width 0.8 -Post Debridement Size (cm) - Depth 0.2 -Total Square Cm 2.00 -Wound/Ulcer Outcome Not Healed -Ulcer Cleansing Rinsed/ Irrigated with Saline -Foul Odor after Cleansing No -Bioengineered Tissue No -Bleeding Controlled with Pressure -Offloading No -Treatment Response Procedure Tolerated Well #7 RIGHT ACHILLES -Time 11:02 -Correct Patient Yes -Correct Side, Site, Position Yes -Correct Procedure Yes -Procedure Performed Yes -Type of Procedure Debridement -Clinical Debridement Subcutaneous -Post Debridement Size (cm) - Length 0.3 -Post Debridement Size (cm) - Width 0.7 -Post Debridement Size (cm) - Depth 0.3 -Total Square Cm 0.21 -Wound/Ulcer Outcome Not Healed -Ulcer Cleansing Rinsed/ Irrigated with Saline -Foul Odor after Cleansing No -Bioengineered Tissue No -Bleeding Controlled with Pressure -Offloading No -Treatment Response Procedure Tolerated Well #4 LEFT ACHILLES -Time 11:02 -Correct Patient Yes -Correct Side, Site, Position Yes -Correct Procedure Yes -Procedure Performed Yes -Type of Procedure Debridement -Clinical Debridement Subcutaneous -Post Debridement Size (cm) - Length 2.8 -Post Debridement Size (cm) - Width 2.5 -Post Debridement Size (cm) - Depth 0.3 -Total Square Cm 7.00 -Wound/Ulcer Outcome Not Healed -Ulcer Cleansing Rinsed/ Irrigated with Saline -Foul Odor after Cleansing No -Bioengineered Tissue No -Bleeding Controlled with Pressure -Offloading No -Treatment Response Procedure Tolerated Well #3 Left Anterior ankle cluster -Time 11:02 -Correct Patient Yes -Correct Side, Site, Position Yes -Correct Procedure Yes -Procedure Performed Yes -Type of Procedure Debridement -Clinical Debridement Subcutaneous -Post Debridement Size (cm) - Length 2.4 -Post Debridement Size (cm) - Width 1.0 -Post Debridement Size (cm) - Depth 0.2 -Total Square Cm 2.40 -Wound/Ulcer Outcome Not Healed -Ulcer Cleansing Rinsed/ Irrigated with Saline -Foul Odor after Cleansing No -Bioengineered Tissue No -Bleeding Controlled with Pressure -Offloading No -Treatment Response Procedure Tolerated Well #1 right post calf -Time 11:02 -Correct Patient Yes -Correct Side, Site, Position Yes -Correct Procedure Yes -Procedure Performed Yes -Type of Procedure Debridement -Clinical Debridement Subcutaneous -Post Debridement Size (cm) - Length 3.2 -Post Debridement Size (cm) - Width 0.7 -Post Debridement Size (cm) - Depth 0.2 -Total Square Cm 2.24 -Wound/Ulcer Outcome Not Healed -Ulcer Cleansing Rinsed/ Irrigated with Saline -Foul Odor after Cleansing No -Bioengineered Tissue No -Bleeding Controlled with Pressure -Offloading No -Treatment Response Procedure Tolerated Well [See Physician Procedure note for Specifics] Pain Scale: 0-10 Numeric [Pain] -Is Patient Pain Free? Yes Musculoskeletal: No Tenderness to Palpation of Joints or Extremities Lymphatic: No Cervical, Supraclavicular, or Inguinal Adenopathy Neurological: Cranial nerves II-XII grossly intact, Neuro grossly intact Psych/Mental Status: Normal Affect, Appropriate Debridement Note Post-Debridement Measurements/Treatment WC - Nurse 2 - General Ulcer CM Notes Start: 12/26/19 11:20 Freq: Status: Active Protocol: Activity Type Activity Date Activity User E-Sign Co-Sign Detail Recorded Client Recorded Date Recorded By Document 12/26/19 11:39 MW [id number] 12/26/19 11:46 MW Document 01/09/20 11:01 MW [id number] 01/09/20 11:08 MW 12/26/19 01/09/20 11:39 11:01 Wound Center Nurse 2 8. R anterior ankle cluster -Time 11:40 11:02 -Correct Patient Yes Yes -Correct Side, Site, Position Yes Yes -Correct Procedure Yes Yes -Procedure Performed No Yes -Type of Procedure Debridement -Clinical Debridement Subcutaneous -Post Debridement Size (cm) - Length 3.5 2.5 -Post Debridement Size (cm) - Width 1.2 0.8 -Post Debridement Size (cm) - Depth 0.2 0.2 -Total Square Cm 4.20 2.00 -Wound/Ulcer Outcome Not Healed Not Healed -Ulcer Cleansing Not Cleansed Rinsed/ Irrigated with Saline -Foul Odor after Cleansing No No -Bioengineered Tissue No No -Bleeding Controlled with NA Pressure -Offloading No No -Treatment Response Procedure Procedure Tolerated Well Tolerated Well #7 RIGHT ACHILLES -Time 11:44 11:02 -Correct Patient Yes Yes -Correct Side, Site, Position Yes Yes -Correct Procedure Yes Yes -Procedure Performed No Yes -Type of Procedure Debridement -Clinical Debridement Subcutaneous -Post Debridement Size (cm) - Length 0.5 0.3 -Post Debridement Size (cm) - Width 1.0 0.7 -Post Debridement Size (cm) - Depth 0.1 0.3 -Total Square Cm 0.50 0.21 -Wound/Ulcer Outcome Not Healed Not Healed -Ulcer Cleansing Not Cleansed Rinsed/ Irrigated with Saline -Foul Odor after Cleansing No No -Bioengineered Tissue No No -Bleeding Controlled with NA Pressure -Offloading No No -Treatment Response Procedure Procedure Tolerated Well Tolerated Well #6 R 3rd toe -Time 11:44 -Correct Patient Yes -Correct Side, Site, Position Yes -Correct Procedure Yes -Procedure Performed No -Post Debridement Size (cm) - Length 0 -Post Debridement Size (cm) - Width 0 -Post Debridement Size (cm) - Depth 0 -Total Square Cm 0 -Wound/Ulcer Outcome Healed- Epithelialized #4 LEFT ACHILLES -Time 11:44 11:02 -Correct Patient Yes Yes -Correct Side, Site, Position Yes Yes -Correct Procedure Yes Yes -Procedure Performed No Yes -Type of Procedure Debridement -Clinical Debridement Subcutaneous -Post Debridement Size (cm) - Length 3.0 2.8 -Post Debridement Size (cm) - Width 2.3 2.5 -Post Debridement Size (cm) - Depth 0.3 0.3 -Total Square Cm 6.90 7.00 -Wound/Ulcer Outcome Not Healed Not Healed -Ulcer Cleansing Not Cleansed Rinsed/ Irrigated with Saline -Foul Odor after Cleansing No No -Bioengineered Tissue No No -Bleeding Controlled with NA Pressure -Offloading No No -Treatment Response Procedure Procedure Tolerated Well Tolerated Well #3 Left Anterior ankle cluster -Time 11:45 11:02 -Correct Patient Yes Yes -Correct Side, Site, Position Yes Yes -Correct Procedure Yes Yes -Procedure Performed No Yes -Type of Procedure Debridement -Clinical Debridement Subcutaneous -Post Debridement Size (cm) - Length 2.8 2.4 -Post Debridement Size (cm) - Width 0.9 1.0 -Post Debridement Size (cm) - Depth 0.2 0.2 -Total Square Cm 2.52 2.40 -Wound/Ulcer Outcome Not Healed Not Healed -Ulcer Cleansing Not Cleansed Rinsed/ Irrigated with Saline -Foul Odor after Cleansing No No -Bioengineered Tissue No No -Bleeding Controlled with NA Pressure -Offloading No No -Treatment Response Procedure Procedure Tolerated Well Tolerated Well #1 right post calf -Time 11:45 11:02 -Correct Patient Yes Yes -Correct Side, Site, Position Yes Yes -Correct Procedure Yes Yes -Procedure Performed No Yes -Type of Procedure Debridement -Clinical Debridement Subcutaneous -Post Debridement Size (cm) - Length 3.5 3.2 -Post Debridement Size (cm) - Width 0.7 0.7 -Post Debridement Size (cm) - Depth 0.3 0.2 -Total Square Cm 2.45 2.24 -Wound/Ulcer Outcome Not Healed Not Healed -Ulcer Cleansing Not Cleansed Rinsed/ Irrigated with Saline -Foul Odor after Cleansing No No -Bioengineered Tissue No No -Bleeding Controlled with NA Pressure -Offloading No No -Treatment Response Procedure Procedure Tolerated Well Tolerated Well Pain Scale: 0-10 Numeric Is Patient Pain Free? Yes Yes Wound debrided: Right posterior calf decubitus ulcer Wound Grade/Stage: Stage II Type of Debridement: Excisional debridement Anesthesia Used: 4% Lidocaine Solution Depth: Down to and including healthy tissue, in the subcutaneous layer Percentage of wound debrided: 100 Instrument Used: 7mm curette Tissue Removed: Slough Severity: Fat Layer Exposed Amount of bleeding with debridement: Mild Bleeding Controlled with: Pressure Patient tolerated procedure well - Additional Wound Wound debrided: Right anterior ankle Wound Grade/Stage: Stage II Type of Debridement: Excisional debridement Anesthesia Used: 5% Lidocaine Gel Depth: Down to and including healthy tissue, in the subcutaneous layer Percentage of wound debrided: 100 Instrument Used: 5mm curette Tissue Removed: Slough Severity: Limited To Skin Breakdown Amount of bleeding with debridement: None Bleeding Controlled with: Compression and gauze Patient tolerated procedure: Patient tolerated procedure well - Additional Wound Wound debrided: Left posterior calf Wound Grade/Stage: stage 2 Type of Debridement: Excisional debridement Anesthesia Used: 5% Lidocaine Gel Depth: Down to and including healthy tissue Percentage of wound debrided: 100 Instrument Used: 7mm curette Tissue Removed: Slough Severity: Fat Layer Exposed Amount of bleeding with debridement: None Bleeding Controlled with: Pressure - Additional Wound Wound debrided: Left Achilles Wound Grade/Stage: Stage II Type of Debridement: Excisional debridement Anesthesia Used: 5% Lidocaine Gel Depth: in the subcutaneous layer Percentage of wound debrided: 100 Instrument Used: 7mm curette Tissue Removed: Slough Severity: Fat Layer Exposed Amount of bleeding with debridement: None Bleeding Controlled with: Pressure Patient tolerated procedure: Patient tolerated procedure well - Additional Wound Wound debrided: Ankle cluster Wound Grade/Stage: Stage II Type of Debridement: Excisional debridement Anesthesia Used: 5% Lidocaine Gel, - Depth: in the subcutaneous layer Instrument Used: 5mm curette Tissue Removed: Slough Severity: Fat Layer Exposed Amount of bleeding with debridement: None Bleeding Controlled with: Pressure Patient tolerated procedure: Patient tolerated procedure well Assessment/Plan Active Problems Decubitus ulcer of left ankle, stage 2 (Acute) Decubitus ulcer of left leg, stage 2 (Acute) Atrial fibrillation and flutter (Acute) Decubitus ulcer of right leg, stage 2 (Acute) Edema, lower extremity (Acute) Malnutrition compromising bodily function (Acute) Assessment: Decubitus ulcers bilateral lower extremities. Bilateral lower leg edema pitting. Congestive heart failure. Atrial fib. Malnutrition Plan: Wash legs with antibacterial soap from knees to toes. Apply Silvadene cream to all open areas cover with gauze Roland double layer Tubigrip's or she may use her own compression stockings with Vu wraps over top. Follow-up 2 weeks
== END 2020-01-13 23:59 ==
LOC: WC 10:30
PROVIDERS: Visit Provider Nurse Practitioner
DX: L89.522 Pressure ulcer of left ankle, stage 2 (principal); L89.512 Pressure ulcer of right ankle, stage 2; L89.892 Pressure ulcer of other site, stage 2; I50.9 Heart failure, unspecified; I48.91 Unspecified atrial fibrillation; E43 Unspecified severe protein-calorie malnutrition; Z79.52 Long term (current) use of systemic steroids; Z79.899 Other long term (current) drug therapy; Z86.14 Personal history of Methicillin resistant Staphylococcus aureus infection
CPT/HCPCS: 11042; 99213; G0463

== ENCOUNTER 2020-02-06 10:00 | Outpatient (RCR) | payer MEDICARE, SELFPAY ==
[2020-01-14 00:30] VITALS: BP 102/61; PULSE 85; RESP 20; TEMP 36.5; O2SAT 97
[2020-01-23 09:42] VITALS: BP 107/71; PULSE 80; RESP 16; TEMP 36.6; BMI 23.2
--- NOTE | 2020-01-23 10:37 | PN.PCM_ITS ---
(1) Atrial fibrillation and flutter Status: Acute Current Visit: Yes Code(s): I48.91 - Unspecified atrial fibrillation; I48.92 - Unspecified atrial flutter (2) Decubitus ulcer of left ankle, stage 2 Status: Acute Current Visit: Yes Code(s): L89.522 - Pressure ulcer of left ankle, stage 2 (3) Decubitus ulcer of left leg, stage 2 Status: Acute Current Visit: Yes Code(s): L89.892 - Pressure ulcer of other site, stage 2 (4) Decubitus ulcer of right leg, stage 2 Status: Acute Current Visit: Yes Code(s): L89.892 - Pressure ulcer of other site, stage 2 (5) Edema, lower extremity Status: Acute Current Visit: Yes Code(s): R60.0 - Localized edema (6) Malnutrition compromising bodily function Status: Acute Current Visit: Yes Code(s): E46 - Unspecified protein-calorie malnutrition (7) Chronic obstructive pulmonary disease (COPD) Status: Chronic Current Visit: Yes Qualifiers: Code(s): J44.9 - Chronic obstructive pulmonary disease, unspecified Type of Wound Date of Service: 01/23/20 Chief Complaint: Follow-up on decubitus ulcers right and left lower extremities History of Wound: 74-year-old white female referred to us by her family doctor for wound care on her decubitus ulcers that have developed on bilateral lower e xtremities. Patient has many comorbidities and is not ambulatory. Daughter is here with her today and states she has a hospital bed and is either in the bed or in the lounge chair. Patient has pitting edema bilateral lower extremities. Patient is on Bumex daily but only uses the Lasix when her weight gain is greater than 3 pounds. Patient is seeping fluid out of skin pores and wounds. This is causing more wounds and cellulitis. Patient was on antibiotics for her cellulitis from her family doctor of [place] and has finished that. Patient also had MRSA history and that is why she was on Levaquin also. Progress of Wound: Went over patient's lab work and malnutrition is at 10 20-40 is normal. Patient's daughters states she she is now getting PT OT and ST colo ring and able to get out of bed and move them and is much better. Cataract surgery this week. Edema is much better in her lower extremities sometimes her daughter says third she she has no edema in her lower ankles which is really good. Finally got her a gel cushion to sit on. Tolerating increased Lasix per [facility] came back positive and were treated properly. Today all the wounds are intact but improving smaller less angry around the perimeter of the wounds still has a lot of slough in the wounds. Real tolerant to the debridement still but is better. Is intolerant to the Aquacel extra and switch back to Silvadene which is fine. Daughter states was seen by oncology and given a blood transfusion and has been doing much better is also receiving PT OT ST and patient seems to be improved and spirits are much higher than what they have been in the past. We will try adding Adaptic to cover wounds for better debridement abilities. - Physical Exam Vital Signs Temp Pulse Resp BP Pulse Ox 98 F 80 16 107/71 97 01/23/20 09:42 01/23/20 09:42 01/23/20 09:42 01/23/20 09:42 01/14/20 00:30 General: Oriented x3, Cooperative, Well developed HEENT: Atraumatic, PERRLA Oral: Moist Mucosa Neck: Supple, No JVD Lungs: Clear to auscultation, Normal air movement Cardiovascular: Regular rate, Regular Rhythm Abdomen: Bowel Sounds Present, Soft, Non Tender, No Hepato-splenomegaly Extremities: No clubbing, No edema, - - Decubitus ulcers right anterior cluster right Achilles right posterior calf left anterior ankle and left Achilles Wound Measurements and Assessment WC - Nurse 1 - General Ulcer Measurement Start: 01/23/20 09:42 Freq: Status: Active Protocol: Activity Type Activity Date Activity User E-Sign Co-Sign Detail Recorded Client Recorded Date Recorded By Document 01/23/20 09:42 MN [id number] 01/23/20 09:53 MN 01/23/20 09:42 Wound Center Nurse 1 [Ulcer Assessment] 8. R anterior ankle cluster -Combined with other wound No -Current Size (cm) - Length 3.5 -Current Size (cm) - Width 0.5 -Current Size (cm) - Depth 0.1 -Total Square Cm 1.75 -Photo Taken No -Epithelialization None Present -Tunneling No -Undermining/Tunneling No -Circular Undermining No -Exudate Amt Small -Exudate Type Serosanguineous -Wound Margin Distinct, Outline Attached -Granulation Amt None Present (0 %) -Slough/Fibrin Yes -Necrosis Amt Large (67-100%) -Necrotic Tissue Type Adherent Slough -Texture (Darshana-wound Skin Appearance) Assessed, Scarring -Moisture (Darshana-wound Skin Appearance Assessed, ) Maceration -Color (Darshana-wound Skin Appearance) Assessed,Palor -Temperature (Darshana-wound Skin No Abnormality Appearance) (Pt Warm) -Tenderness on Palpation (Darshana-wound No Skin Appearance) -Ulcer Cleansing Rinsed/ Irrigated with Saline -Foul Odor after Cleansing No -Anesthetic Used 4% Lidocaine Solution #7 RIGHT ACHILLES -Combined with other wound No -Current Size (cm) - Length 0.5 -Current Size (cm) - Width 1.0 -Current Size (cm) - Depth 0.1 -Total Square Cm 0.50 -Photo Taken No -Epithelialization None Present -Tunneling No -Undermining/Tunneling No -Circular Undermining No -Exudate Amt Small -Exudate Type Serosanguineous -Wound Margin Distinct, Outline Attached -Granulation Amt None Present (0 %) -Slough/Fibrin Yes -Necrosis Amt Large (67-100%) -Necrotic Tissue Type Adherent Slough -Texture (Darshana-wound Skin Appearance) Assessed, Scarring -Moisture (Darshana-wound Skin Appearance Assessed, ) Maceration -Color (Darshana-wound Skin Appearance) Assessed,Palor -Temperature (Darshana-wound Skin No Abnormality Appearance) (Pt Warm) -Tenderness on Palpation (Darshana-wound Yes Skin Appearance) -Ulcer Cleansing Rinsed/ Irrigated with Saline -Foul Odor after Cleansing No -Anesthetic Used 4% Lidocaine Solution #4 LEFT ACHILLES -Combined with other wound No -Current Size (cm) - Length 3 -Current Size (cm) - Width 3 -Current Size (cm) - Depth 0.1 -Total Square Cm 9 -Photo Taken No -Epithelialization None Present -Tunneling No -Undermining/Tunneling No -Circular Undermining No -Exudate Amt Small -Exudate Type Serosanguineous -Wound Margin Distinct, Outline Attached -Granulation Amt None Present (0 %) -Slough/Fibrin Yes -Necrosis Amt Large (67-100%) -Necrotic Tissue Type Adherent Slough -Texture (Darshana-wound Skin Appearance) Assessed, Scarring -Moisture (Darshana-wound Skin Appearance Maceration ) -Color (Darshana-wound Skin Appearance) Assessed,Palor -Temperature (Darshana-wound Skin No Abnormality Appearance) (Pt Warm) -Tenderness on Palpation (Darshana-wound No Skin Appearance) -Ulcer Cleansing Rinsed/ Irrigated with Saline -Foul Odor after Cleansing No -Anesthetic Used 4% Lidocaine Solution #3 Left Anterior ankle cluster -Combined with other wound No -Current Size (cm) - Length 2.5 -Current Size (cm) - Width 1 -Current Size (cm) - Depth 0.1 -Total Square Cm 2.5 -Photo Taken No -Epithelialization None Present -Tunneling No -Undermining/Tunneling No -Circular Undermining No -Exudate Amt Small -Exudate Type Serosanguineous -Wound Margin Distinct, Outline Attached -Granulation Amt None Present (0 %) -Slough/Fibrin Yes -Necrosis Amt Large (67-100%) -Necrotic Tissue Type Adherent Slough -Texture (Darshana-wound Skin Appearance) Assessed, Scarring -Moisture (Darshana-wound Skin Appearance Assessed, ) Maceration -Color (Darshana-wound Skin Appearance) Assessed,Palor -Temperature (Darshana-wound Skin No Abnormality Appearance) (Pt Warm) -Tenderness on Palpation (Darshana-wound No Skin Appearance) -Ulcer Cleansing Rinsed/ Irrigated with Saline -Foul Odor after Cleansing No -Anesthetic Used 4% Lidocaine Solution #1 right post calf -Combined with other wound No -Current Size (cm) - Length 3.0 -Current Size (cm) - Width 1.0 -Current Size (cm) - Depth 0.2 -Total Square Cm 3.00 -Photo Taken No -Epithelialization None Present -Tunneling No -Undermining/Tunneling No -Circular Undermining No -Exudate Amt Small -Exudate Type Serosanguineous -Wound Margin Distinct, Outline Attached -Granulation Amt None Present (0 %) -Slough/Fibrin Yes -Necrosis Amt Large (67-100%) -Necrotic Tissue Type Adherent Slough -Texture (Darshana-wound Skin Appearance) Assessed, Scarring -Moisture (Darshana-wound Skin Appearance Assessed, ) Maceration -Color (Darshana-wound Skin Appearance) Assessed,Palor -Temperature (Darshana-wound Skin No Abnormality Appearance) (Pt Warm) -Tenderness on Palpation (Darshana-wound Yes Skin Appearance) -Ulcer Cleansing Rinsed/ Irrigated with Saline -Foul Odor after Cleansing No -Anesthetic Used 4% Lidocaine Solution WC - Nurse 2 - General Ulcer CM Notes Start: 01/23/20 09:42 Freq: Status: Active Protocol: Activity Type Activity Date Activity User E-Sign Co-Sign Detail Recorded Client Recorded Date Recorded By Document 01/23/20 10:14 MW [id number] 01/23/20 10:20 MW 01/23/20 10:14 Wound Center Nurse 2 [Procedure/Treatment] 8. R anterior ankle cluster -Time 10:15 -Correct Patient Yes -Correct Side, Site, Position Yes -Correct Procedure Yes -Procedure Performed Yes -Type of Procedure Debridement -Clinical Debridement Subcutaneous -Post Debridement Size (cm) - Length 2.7 -Post Debridement Size (cm) - Width 0.5 -Post Debridement Size (cm) - Depth 0.2 -Total Square Cm 1.35 -Wound/Ulcer Outcome Not Healed -Ulcer Cleansing Rinsed/ Irrigated with Saline -Foul Odor after Cleansing No -Bioengineered Tissue No -Bleeding Controlled with Pressure -Offloading No -Treatment Response Procedure Tolerated Well #7 RIGHT ACHILLES -Time 10:16 -Correct Patient Yes -Correct Side, Site, Position Yes -Correct Procedure Yes -Procedure Performed Yes -Type of Procedure Debridement -Clinical Debridement Subcutaneous -Post Debridement Size (cm) - Length 0.5 -Post Debridement Size (cm) - Width 0.5 -Post Debridement Size (cm) - Depth 0.1 -Total Square Cm 0.25 -Wound/Ulcer Outcome Not Healed -Ulcer Cleansing Rinsed/ Irrigated with Saline -Foul Odor after Cleansing No -Bioengineered Tissue No -Bleeding Controlled with Pressure -Offloading No -Treatment Response Procedure Tolerated Well #4 LEFT ACHILLES -Time 10:17 -Correct Patient Yes -Correct Side, Site, Position Yes -Correct Procedure Yes -Procedure Performed Yes -Type of Procedure Debridement -Clinical Debridement Subcutaneous -Post Debridement Size (cm) - Length 2.8 -Post Debridement Size (cm) - Width 2.3 -Post Debridement Size (cm) - Depth 0.2 -Total Square Cm 6.44 -Wound/Ulcer Outcome Not Healed -Ulcer Cleansing Rinsed/ Irrigated with Saline -Foul Odor after Cleansing No -Bioengineered Tissue No -Bleeding Controlled with Pressure -Offloading No -Treatment Response Procedure Tolerated Well #3 Left Anterior ankle cluster -Time 10:17 -Correct Patient Yes -Correct Side, Site, Position Yes -Correct Procedure Yes -Procedure Performed Yes -Type of Procedure Debridement -Clinical Debridement Subcutaneous -Post Debridement Size (cm) - Length 2.3 -Post Debridement Size (cm) - Width 1.0 -Post Debridement Size (cm) - Depth 0.2 -Total Square Cm 2.30 -Wound/Ulcer Outcome Not Healed -Ulcer Cleansing Rinsed/ Irrigated with Saline -Foul Odor after Cleansing No -Bioengineered Tissue No -Bleeding Controlled with Pressure -Offloading No -Treatment Response Procedure Tolerated Well #1 right post calf -Time 10:17 -Correct Patient Yes -Correct Side, Site, Position Yes -Correct Procedure Yes -Procedure Performed Yes -Type of Procedure Debridement -Clinical Debridement Subcutaneous -Post Debridement Size (cm) - Length 3.0 -Post Debridement Size (cm) - Width 0.4 -Post Debridement Size (cm) - Depth 0.2 -Total Square Cm 1.20 -Wound/Ulcer Outcome Not Healed -Ulcer Cleansing Rinsed/ Irrigated with Saline -Foul Odor after Cleansing No -Bioengineered Tissue No -Bleeding Controlled with Pressure -Offloading No -Treatment Response Procedure Tolerated Well [See Physician Procedure note for Specifics] Pain Scale: 0-10 Numeric [Pain] -Is Patient Pain Free? Yes Musculoskeletal: No Tenderness to Palpation of Joints or Extremities Lymphatic: No Cervical, Supraclavicular, or Inguinal Adenopathy Neurological: Cranial nerves II-XII grossly intact, Neuro grossly intact Psych/Mental Status: Normal Affect, Appropriate, Alert and oriented to time, place, person, mood and affect Debridement Note Post-Debridement Measurements/Treatment WC - Nurse 2 - General Ulcer CM Notes Start: 01/23/20 09:42 Freq: Status: Active Protocol: Activity Type Activity Date Activity User E-Sign Co-Sign Detail Recorded Client Recorded Date Recorded By Document 01/23/20 10:14 MW [id number] 01/23/20 10:20 MW 01/23/20 10:14 Wound Center Nurse 2 8. R anterior ankle cluster -Time 10:15 -Correct Patient Yes -Correct Side, Site, Position Yes -Correct Procedure Yes -Procedure Performed Yes -Type of Procedure Debridement -Clinical Debridement Subcutaneous -Post Debridement Size (cm) - Length 2.7 -Post Debridement Size (cm) - Width 0.5 -Post Debridement Size (cm) - Depth 0.2 -Total Square Cm 1.35 -Wound/Ulcer Outcome Not Healed -Ulcer Cleansing Rinsed/ Irrigated with Saline -Foul Odor after Cleansing No -Bioengineered Tissue No -Bleeding Controlled with Pressure -Offloading No -Treatment Response Procedure Tolerated Well #7 RIGHT ACHILLES -Time 10:16 -Correct Patient Yes -Correct Side, Site, Position Yes -Correct Procedure Yes -Procedure Performed Yes -Type of Procedure Debridement -Clinical Debridement Subcutaneous -Post Debridement Size (cm) - Length 0.5 -Post Debridement Size (cm) - Width 0.5 -Post Debridement Size (cm) - Depth 0.1 -Total Square Cm 0.25 -Wound/Ulcer Outcome Not Healed -Ulcer Cleansing Rinsed/ Irrigated with Saline -Foul Odor after Cleansing No -Bioengineered Tissue No -Bleeding Controlled with Pressure -Offloading No -Treatment Response Procedure Tolerated Well #4 LEFT ACHILLES -Time 10:17 -Correct Patient Yes -Correct Side, Site, Position Yes -Correct Procedure Yes -Procedure Performed Yes -Type of Procedure Debridement -Clinical Debridement Subcutaneous -Post Debridement Size (cm) - Length 2.8 -Post Debridement Size (cm) - Width 2.3 -Post Debridement Size (cm) - Depth 0.2 -Total Square Cm 6.44 -Wound/Ulcer Outcome Not Healed -Ulcer Cleansing Rinsed/ Irrigated with Saline -Foul Odor after Cleansing No -Bioengineered Tissue No -Bleeding Controlled with Pressure -Offloading No -Treatment Response Procedure Tolerated Well #3 Left Anterior ankle cluster -Time 10:17 -Correct Patient Yes -Correct Side, Site, Position Yes -Correct Procedure Yes -Procedure Performed Yes -Type of Procedure Debridement -Clinical Debridement Subcutaneous -Post Debridement Size (cm) - Length 2.3 -Post Debridement Size (cm) - Width 1.0 -Post Debridement Size (cm) - Depth 0.2 -Total Square Cm 2.30 -Wound/Ulcer Outcome Not Healed -Ulcer Cleansing Rinsed/ Irrigated with Saline -Foul Odor after Cleansing No -Bioengineered Tissue No -Bleeding Controlled with Pressure -Offloading No -Treatment Response Procedure Tolerated Well #1 right post calf -Time 10:17 -Correct Patient Yes -Correct Side, Site, Position Yes -Correct Procedure Yes -Procedure Performed Yes -Type of Procedure Debridement -Clinical Debridement Subcutaneous -Post Debridement Size (cm) - Length 3.0 -Post Debridement Size (cm) - Width 0.4 -Post Debridement Size (cm) - Depth 0.2 -Total Square Cm 1.20 -Wound/Ulcer Outcome Not Healed -Ulcer Cleansing Rinsed/ Irrigated with Saline -Foul Odor after Cleansing No -Bioengineered Tissue No -Bleeding Controlled with Pressure -Offloading No -Treatment Response Procedure Tolerated Well Pain Scale: 0-10 Numeric Is Patient Pain Free? Yes Wound debrided: Right anterior cluster ankle Laterality: Right Wound Grade/Stage: Stage II Type of Debridement: Excisional debridement Anesthesia Used: 5% Lidocaine Gel Depth: Down to and including healthy tissue, in the subcutaneous layer Percentage of wound debrided: 100 Instrument Used: 5mm curette Tissue Removed: Slough Severity: Limited To Skin Breakdown Amount of bleeding with debridement: Mild Bleeding Controlled with: Compression and gauze Patient tolerated procedure well - Additional Wound Wound debrided: Right Achilles Wound Grade/Stage: stage 2 Type of Debridement: Excisional debridement Anesthesia Used: 5% Lidocaine Gel Depth: Down to and including healthy tissue, in the subcutaneous layer Percentage of wound debrided: 100 Instrument Used: 5mm curette Tissue Removed: Slough Severity: Fat Layer Exposed Amount of bleeding with debridement: Mild Bleeding Controlled with: Compression and gauze Patient tolerated procedure: Patient tolerated procedure well - Additional Wound Wound debrided: Right posterior calf ulcer Wound Grade/Stage: Stage II Type of Debridement: Excisional debridement Anesthesia Used: 5% Lidocaine Gel Depth: Down to and including healthy tissue, in the subcutaneous layer Percentage of wound debrided: 100 Instrument Used: 5mm curette Tissue Removed: Slough Severity: Fat Layer Exposed Amount of bleeding with debridement: Mild Bleeding Controlled with: Compression and gauze Patient tolerated procedure: Patient tolerated procedure well - Additional Wound Wound debrided: Left anterior ankle cluster Wound Grade/Stage: Stage II Type of Debridement: Excisional debridement Anesthesia Used: 5% Lidocaine Gel Depth: Down to and including healthy tissue, in the subcutaneous layer Percentage of wound debrided: 100 Instrument Used: 5mm curette Tissue Removed: Slough Severity: Limited To Skin Breakdown Amount of bleeding with debridement: Mild Bleeding Controlled with: Compression and gauze Patient tolerated procedure: Patient did not tolerate procedure well - Additional Wound Wound debrided: Left Achilles ulcer Wound Grade/Stage: stage 2 Type of Debridement: Excisional debridement Anesthesia Used: 5% Lidocaine Gel Depth: Down to and including healthy tissue, in the subcutaneous layer Percentage of wound debrided: 100 Instrument Used: 5mm curette Tissue Removed: Slough Severity: Fat Layer Exposed Amount of bleeding with debridement: Mild Bleeding Controlled with: Compression and gauze Patient tolerated procedure: Patient tolerated procedure well Assessment/Plan Active Problems Decubitus ulcer of left ankle, stage 2 (Acute) Decubitus ulcer of left leg, stage 2 (Acute) Atrial fibrillation and flutter (Acute) Chronic obstructive pulmonary disease (COPD) (Chronic) Decubitus ulcer of right leg, stage 2 (Acute) Edema, lower extremity (Acute) Malnutrition compromising bodily function (Acute) Assessment: Decubitus ulcers bilateral lower extremities. Bilateral lower leg edema pitting. Congestive heart failure. Atrial fib. Malnutrition Plan: Wash legs with antibacterial soap from knees to toes. Apply Silvadene cream to all open areas cover with Adaptic, gauze Roland double layer Tubigrip's or she may use her own compression stockings with Vu wraps over top. Follow- up 2 weeks
[2020-02-06 09:57] VITALS: BP 81/52; PULSE 70; RESP 16; TEMP 36.8; BMI 23.2
--- NOTE | 2020-02-06 11:25 | PCM.WC.PN ---
(1) Atrial fibrillation and flutter Status: Acute Current Visit: Yes Code(s): I48.91 - Unspecified atrial fibrillation; I48.92 - Unspecified atrial flutter (2) Decubitus ulcer of left ankle, stage 2 Status: Acute Current Visit: Yes Code(s): L89.522 - Pressure ulcer of left ankle, stage 2 (3) Decubitus ulcer of left leg, stage 2 Status: Acute Current Visit: Yes Code(s): L89.892 - Pressure ulcer of other site, stage 2 (4) Decubitus ulcer of right leg, stage 2 Status: Acute Current Visit: Yes Code(s): L89.892 - Pressure ulcer of other site, stage 2 (5) Edema, lower extremity Status: Acute Current Visit: Yes Code(s): R60.0 - Localized edema (6) Malnutrition compromising bodily function Status: Acute Current Visit: Yes Code(s): E46 - Unspecified protein-calorie malnutrition (7) Chronic obstructive pulmonary disease (COPD) Status: Chronic Current Visit: Yes Qualifiers: Code(s): J44.9 - Chronic obstructive pulmonary disease, unspecified Type of Wound Date of Service: 02/06/20 Chief Complaint: Follow-up on decubitus ulcers right and left lower extremities History of Wound: 74-year-old white female referred to us by her family doctor for wound care on her decubitus ulcers that have developed on bilateral lower extremities. Patient has many comorbidities and is not ambulatory. Daughter is here with her today and states she has a hospital bed and is either in the bed or in the lounge chair. Patient has pitting edema bilateral lower extremities. Patient is on Bumex daily but only uses the Lasix when her weight gain is greater than 3 pounds. Patient is seeping fluid out of skin pores and wounds. This is causing more wounds and cellulitis. Patient was on antibiotics for her cellulitis from her family doctor of [place] and has finished that. Patient also had MRSA history and that is why she was on Levaquin also. Progress of Wound: Went over patient's lab work and malnutrition is at 10 20-40 is normal. Patient has taken a turn for the worse coloring is poor edema is bad developing more open sores on her feet and Achilles area. Patient is starting to mottle and her legs are turning purple with discoloration cool to touch. Patient more lethargic. I do not expect this patient to live for the next 2 weeks and I subliminaly talked to the daughter stating that and she understands. I gave them the choice of coming or not depending on her condition. She states she is not walking anymore and not taking any intake. And that it is just turn for the worse in the last few days. - Physical Exam Vital Signs Temp Pulse Resp BP Pulse Ox 98.2 F 70 16 81/52 L 97 02/06/20 09:57 02/06/20 09:57 02/06/20 09:57 02/06/20 09:57 01/14/20 00:30 General: Cooperative, - - Malnourished HEENT: Atraumatic, PERRLA Neck: Supple, No JVD Lungs: Clear to auscultation, Normal air movement Cardiovascular: Regular rate, Regular Rhythm Abdomen: Bowel Sounds Present, Soft, Non Tender, No Hepato-splenomegaly Extremities: No clubbing, Cool - Lower extremities with mottling on the upper legs and swelling, Edema Skin: Ulcer/ Wound - Ulcers on her right lateral foot stage III distal right foot stage III and left hallux stage III Right anterior ankle right lateral foot right Achilles right posterior calf left anterior ankle and left Achilles all stage II's Wound Measurements and Assessment WC - Nurse 1 - General Ulcer Measurement Start: 01/23/20 09:42 Freq: Status: Active Protocol: Activity Type Activity Date Activity User E-Sign Co-Sign Detail Recorded Client Recorded Date Recorded By Document 02/06/20 09:57 [id number] 02/06/20 10:15 BS 02/06/20 09:57 Wound Center Nurse 1 [Ulcer Assessment] #11 Left medical hallux -Current Size (cm) - Length 0.6 -Current Size (cm) - Width 0.5 -Current Size (cm) - Depth 0.3 -Total Square Cm 0.30 -Texture (Darshana-wound Skin Appearance) Assessed, Localized Edema -Moisture (Darshana-wound Skin Appearance Assessed, ) Maceration, Weeping -Color (Darshana-wound Skin Appearance) Assessed, Hemosiderin Staining -Temperature (Darshana-wound Skin No Abnormality Appearance) (Pt Warm) -Tenderness on Palpation (Darshana-wound Yes Skin Appearance) -Ulcer Cleansing Rinsed/ Irrigated with Saline -Foul Odor after Cleansing No -Anesthetic Used 4% Lidocaine Solution # 10 R lateral inferior foot -Combined with other wound No -Current Size (cm) - Length 0.2 -Current Size (cm) - Width 0.4 -Current Size (cm) - Depth 0.2 -Total Square Cm 0.08 -Granulation Quality Arnett -Texture (Darshana-wound Skin Appearance) Assessed, Localized Edema -Moisture (Darshana-wound Skin Appearance No Abnormality, ) Assessed -Color (Darshana-wound Skin Appearance) Assessed, Hemosiderin Staining -Temperature (Darshana-wound Skin No Abnormality Appearance) (Pt Warm) -Tenderness on Palpation (Darshana-wound Yes Skin Appearance) -Ulcer Cleansing Rinsed/ Irrigated with Saline -Foul Odor after Cleansing No -Anesthetic Used 4% Lidocaine Solution #9 R lateral foot superior -Combined with other wound No -Current Size (cm) - Length 0.9 -Current Size (cm) - Width 1.0 -Current Size (cm) - Depth 0.3 -Total Square Cm 0.90 -Necrotic Tissue Type Adherent Slough -Texture (Darshana-wound Skin Appearance) Assessed, Localized Edema -Moisture (Darshana-wound Skin Appearance Assessed, ) Maceration, Weeping -Color (Darshana-wound Skin Appearance) Assessed, Hemosiderin Staining -Temperature (Darshana-wound Skin No Abnormality Appearance) (Pt Warm) -Tenderness on Palpation (Darshana-wound Yes Skin Appearance) -Ulcer Cleansing Rinsed/ Irrigated with Saline -Foul Odor after Cleansing No -Anesthetic Used 4% Lidocaine Solution 8. R anterior ankle cluster -Combined with other wound No -Current Size (cm) - Length 2.7 -Current Size (cm) - Width 0.6 -Current Size (cm) - Depth 0.2 -Total Square Cm 1.62 -Necrotic Tissue Type Adherent Slough -Texture (Darshana-wound Skin Appearance) Assessed, Localized Edema -Moisture (Darshana-wound Skin Appearance Assessed, ) Weeping -Color (Darshana-wound Skin Appearance) Assessed, Erythema, Hemosiderin Staining -Temperature (Darshana-wound Skin No Abnormality Appearance) (Pt Warm) -Tenderness on Palpation (Darshana-wound Yes Skin Appearance) -Ulcer Cleansing Rinsed/ Irrigated with Saline -Foul Odor after Cleansing No -Anesthetic Used 4% Lidocaine Solution #7 RIGHT ACHILLES -Combined with other wound No -Current Size (cm) - Length 0.1 -Current Size (cm) - Width 0.1 -Current Size (cm) - Depth 0.1 -Total Square Cm 0.01 -Color (Darshana-wound Skin Appearance) Assessed, Erythema, Hemosiderin Staining -Temperature (Darshana-wound Skin No Abnormality Appearance) (Pt Warm) -Tenderness on Palpation (Darshana-wound Yes Skin Appearance) -Ulcer Cleansing Rinsed/ Irrigated with Saline -Foul Odor after Cleansing No -Anesthetic Used 4% Lidocaine Solution #4 LEFT ACHILLES -Combined with other wound No -Current Size (cm) - Length 3.0 -Current Size (cm) - Width 3.2 -Current Size (cm) - Depth 0.3 -Total Square Cm 9.60 -Necrotic Tissue Type Adherent Slough -Texture (Darshana-wound Skin Appearance) Assessed, Localized Edema -Moisture (Darshana-wound Skin Appearance Assessed, ) Weeping -Color (Darshana-wound Skin Appearance) Assessed, Erythema -Temperature (Darshana-wound Skin No Abnormality Appearance) (Pt Warm) -Tenderness on Palpation (Darshana-wound Yes Skin Appearance) -Ulcer Cleansing Rinsed/ Irrigated with Saline -Foul Odor after Cleansing No -Anesthetic Used 4% Lidocaine Solution #3 Left Anterior ankle cluster -Combined with other wound No -Current Size (cm) - Length 2.3 -Current Size (cm) - Width 1.2 -Current Size (cm) - Depth 0.2 -Total Square Cm 2.76 -Necrotic Tissue Type Adherent Slough -Texture (Darshana-wound Skin Appearance) Assessed, Localized Edema -Moisture (Darshana-wound Skin Appearance Assessed, ) Maceration, Weeping -Color (Darshana-wound Skin Appearance) Assessed, Erythema -Temperature (Darshana-wound Skin No Abnormality Appearance) (Pt Warm) -Tenderness on Palpation (Darshana-wound Yes Skin Appearance) -Ulcer Cleansing Rinsed/ Irrigated with Saline -Foul Odor after Cleansing No -Anesthetic Used 4% Lidocaine Solution #1 right post calf -Combined with other wound No -Current Size (cm) - Length 2.8 -Current Size (cm) - Width 0.4 -Current Size (cm) - Depth 0.3 -Total Square Cm 1.12 -Necrotic Tissue Type Adherent Slough -Texture (Darshana-wound Skin Appearance) Assessed, Localized Edema -Moisture (Darshana-wound Skin Appearance Assessed, ) Maceration, Weeping -Color (Darshana-wound Skin Appearance) Assessed, Erythema -Temperature (Darshana-wound Skin No Abnormality Appearance) (Pt Warm) -Tenderness on Palpation (Darshana-wound Yes Skin Appearance) -Ulcer Cleansing Rinsed/ Irrigated with Saline -Foul Odor after Cleansing No -Anesthetic Used 4% Lidocaine Solution [Edema Assessment] -Lower Limb Edema Present Yes -Right Calf (cm) 35.0 -Right Ankle (cm) 23.2 -Left Calf (cm) 34.6 -Left Ankle (cm) 23.2 Musculoskeletal: No Tenderness to Palpation of Joints or Extremities Lymphatic: No Cervical, Supraclavicular, or Inguinal Adenopathy Neurological: Cranial nerves II-XII grossly intact, Neuro grossly intact Psych/Mental Status: Normal Affect, Appropriate Debridement Note Post-Debridement Measurements/Treatment WC - Nurse 2 - General Ulcer CM Notes Start: 01/23/20 09:42 Freq: Status: Active Protocol: Activity Type Activity Date Activity User E-Sign Co-Sign Detail Recorded Client Recorded Date Recorded By Document 01/23/20 10:14 MW [id number] 01/23/20 10:20 MW 01/23/20 10:14 Wound Center Nurse 2 8. R anterior ankle cluster -Time 10:15 -Correct Patient Yes -Correct Side, Site, Position Yes -Correct Procedure Yes -Procedure Performed Yes -Type of Procedure Debridement -Clinical Debridement Subcutaneous -Post Debridement Size (cm) - Length 2.7 -Post Debridement Size (cm) - Width 0.5 -Post Debridement Size (cm) - Depth 0.2 -Total Square Cm 1.35 -Wound/Ulcer Outcome Not Healed -Ulcer Cleansing Rinsed/ Irrigated with Saline -Foul Odor after Cleansing No -Bioengineered Tissue No -Bleeding Controlled with Pressure -Offloading No -Treatment Response Procedure Tolerated Well #7 RIGHT ACHILLES -Time 10:16 -Correct Patient Yes -Correct Side, Site, Position Yes -Correct Procedure Yes -Procedure Performed Yes -Type of Procedure Debridement -Clinical Debridement Subcutaneous -Post Debridement Size (cm) - Length 0.5 -Post Debridement Size (cm) - Width 0.5 -Post Debridement Size (cm) - Depth 0.1 -Total Square Cm 0.25 -Wound/Ulcer Outcome Not Healed -Ulcer Cleansing Rinsed/ Irrigated with Saline -Foul Odor after Cleansing No -Bioengineered Tissue No -Bleeding Controlled with Pressure -Offloading No -Treatment Response Procedure Tolerated Well #4 LEFT ACHILLES -Time 10:17 -Correct Patient Yes -Correct Side, Site, Position Yes -Correct Procedure Yes -Procedure Performed Yes -Type of Procedure Debridement -Clinical Debridement Subcutaneous -Post Debridement Size (cm) - Length 2.8 -Post Debridement Size (cm) - Width 2.3 -Post Debridement Size (cm) - Depth 0.2 -Total Square Cm 6.44 -Wound/Ulcer Outcome Not Healed -Ulcer Cleansing Rinsed/ Irrigated with Saline -Foul Odor after Cleansing No -Bioengineered Tissue No -Bleeding Controlled with Pressure -Offloading No -Treatment Response Procedure Tolerated Well #3 Left Anterior ankle cluster -Time 10:17 -Correct Patient Yes -Correct Side, Site, Position Yes -Correct Procedure Yes -Procedure Performed Yes -Type of Procedure Debridement -Clinical Debridement Subcutaneous -Post Debridement Size (cm) - Length 2.3 -Post Debridement Size (cm) - Width 1.0 -Post Debridement Size (cm) - Depth 0.2 -Total Square Cm 2.30 -Wound/Ulcer Outcome Not Healed -Ulcer Cleansing Rinsed/ Irrigated with Saline -Foul Odor after Cleansing No -Bioengineered Tissue No -Bleeding Controlled with Pressure -Offloading No -Treatment Response Procedure Tolerated Well #1 right post calf -Time 10:17 -Correct Patient Yes -Correct Side, Site, Position Yes -Correct Procedure Yes -Procedure Performed Yes -Type of Procedure Debridement -Clinical Debridement Subcutaneous -Post Debridement Size (cm) - Length 3.0 -Post Debridement Size (cm) - Width 0.4 -Post Debridement Size (cm) - Depth 0.2 -Total Square Cm 1.20 -Wound/Ulcer Outcome Not Healed -Ulcer Cleansing Rinsed/ Irrigated with Saline -Foul Odor after Cleansing No -Bioengineered Tissue No -Bleeding Controlled with Pressure -Offloading No -Treatment Response Procedure Tolerated Well Pain Scale: 0-10 Numeric Is Patient Pain Free? Yes Wound debrided: Right anterior ankle Wound Grade/Stage: Stage II Type of Debridement: Excisional debridement Anesthesia Used: 5% Lidocaine Gel Depth: Down to and including healthy tissue, in the subcutaneous layer Percentage of wound debrided: 100 Instrument Used: 5mm curette Tissue Removed: slough Severity: Fat Layer Exposed Amount of bleeding with debridement: None Bleeding Controlled with: Pressure Patient tolerated procedure well - Additional Wound Wound debrided: Right lateral foot Wound Grade/Stage: Stage III Type of Debridement: Excisional debridement Anesthesia Used: 5% Lidocaine Gel Depth: Down to and including healthy tissue, in the subcutaneous layer Percentage of wound debrided: 100 Instrument Used: 3mm curette, 5mm curette Tissue Removed: slough Severity: Fat Layer Exposed Amount of bleeding with debridement: None Bleeding Controlled with: Pressure - Additional Wound Wound debrided: Right Achilles Wound Grade/Stage: stage 2 Type of Debridement: Excisional debridement Anesthesia Used: 5% Lidocaine Gel Depth: Down to and including healthy tissue, in the subcutaneous layer Percentage of wound debrided: 100 Instrument Used: 3mm curette Tissue Removed: Slough Severity: Fat Layer Exposed Amount of bleeding with debridement: None Bleeding Controlled with: Pressure Patient tolerated procedure: Patient tolerated procedure well - Additional Wound Wound debrided: Right posterior calf Wound Grade/Stage: Stage II Type of Debridement: Excisional debridement Anesthesia Used: 5% Lidocaine Gel Depth: Down to and including healthy tissue, in the subcutaneous layer Percentage of wound debrided: 100 Instrument Used: 3mm curette Tissue Removed: Slough Severity: Fat Layer Exposed Bleeding Controlled with: Compression and gauze Patient tolerated procedure: Patient tolerated procedure well - Additional Wound Wound debrided: Left anterior ankle Wound Grade/Stage: Stage II Type of Debridement: Excisional debridement Anesthesia Used: 5% Lidocaine Gel Depth: Down to and including healthy tissue, in the subcutaneous layer Percentage of wound debrided: 100 Instrument Used: 3mm curette Tissue Removed: Slough Severity: Limited To Skin Breakdown Amount of bleeding with debridement: Mild Bleeding Controlled with: Pressure Patient tolerated procedure: Patient tolerated procedure well - Additional Wound Wound debrided: Left Achilles Wound Grade/Stage: Stage II Type of Debridement: Excisional debridement Anesthesia Used: 5% Lidocaine Gel Depth: Down to and including healthy tissue, in the subcutaneous layer Percentage of wound debrided: 100 Instrument Used: 3mm curette Tissue Removed: Slough Severity: Fat Layer Exposed Amount of bleeding with debridement: None Patient tolerated procedure: Patient tolerated procedure well Assessment/Plan Active Problems Decubitus ulcer of left ankle, stage 2 (Acute) Decubitus ulcer of left leg, stage 2 (Acute) Atrial fibrillation and flutter (Acute) Chronic obstructive pulmonary disease (COPD) (Chronic) Decubitus ulcer of right leg, stage 2 (Acute) Edema, lower extremity (Acute) Malnutrition compromising bodily function (Acute) Assessment: Decubitus ulcers bilateral lower extremities. Bilateral lower leg edema pitting. Congestive heart failure. Atrial fib. Malnutrition Plan: Wash legs with antibacterial soap from knees to toes. Apply Silvadene cream to all open areas cover with Adaptic, gauze Roland double layer Tubigrip's or she may use her own compression stockings with Vu wraps over top. Follow-up 2 weeks
== END 2020-02-12 23:59 ==
LOC: WC 10:00
PROVIDERS: Visit Provider Nurse Practitioner
DX: L89.522 Pressure ulcer of left ankle, stage 2 (principal); L89.512 Pressure ulcer of right ankle, stage 2; L89.892 Pressure ulcer of other site, stage 2; J44.9 Chronic obstructive pulmonary disease, unspecified; I48.91 Unspecified atrial fibrillation; Z86.14 Personal history of Methicillin resistant Staphylococcus aureus infection; I50.9 Heart failure, unspecified
CPT/HCPCS: 11042; 11045